=== PATIENT | female | born 1935 | race Caucasian/White ===

== ENCOUNTER 2016-10-11 13:49 | Emergency (ER) | payer OTHER, MEDICAID ==
[~2016-10-11] VITALS: Ht 162.6 cm; Wt 72.6 kg
[~2016-10-11 13:49] MED LIST: ALEN10TA6 PO; ASPI-1063 PO; INSU10VI4 SUBCUT; LIP40 PO; LISI10TA5 PO; METO-442 PO; TOPXL100 PO
[2016-10-11 14:03] VITALS: BP_SYST 155
[2016-10-11 14:36] LABS: BASOPHILS % (AUTO) 0.4 % (0.0-2.0); EOSINOPHILS # (AUTO) 0.1 K/uL (0.0-0.4); HEMATOCRIT 36.6 % (36-48); HEMOGLOBIN 12.1 g/dL (12.0-16.0); MEAN CORPUSCULAR HEMOGLOBIN 29 pg (27-31); MEAN CORPUSCULAR HGB CONC 33 % (32-36); MEAN CORPUSCULAR VOLUME 88 fL (79.0-98.0); MONOCYTES # (AUTO) 1.3 K/uL (0.0-1.0); MONOCYTES % (AUTO) 11.5 % (1.7-9.3); NEUTROPHILS # (AUTO) 7.9 K/uL (1.8-7.7); NEUTROPHILS % (AUTO) 69.1 % (40.0-70.0); PLATELET COUNT (AUTO) 223 K/uL (130-430); RED BLOOD CELL COUNT(AUTO) 4.18 MIL/uL (4.2-6.2); RED CELL DISTRIBUTION WIDTH 13.4 % (9.0-15.0); WHITE BLOOD COUNT (AUTO) 11.3 K/uL (4.8-10.8)
[2016-10-11 14:47] LABS: ANION GAP 9 (5-15); CALCIUM 9.2 mg/dL (8.4-11.0); CHLORIDE 97 mmol/L (98-107); CREATININE 1.26 mg/dL (0.55-1.30); GLUCOSE 151 mg/dL (70-99); PROTHROMBIN TIME 10.4 SECS (9.5-12.5); SODIUM SERUM 130 mmol/L (136-145); UREA NITROGEN, BLOOD 19 mg/dL (8-21)
[2016-10-11 15:02] LABS: ALANINE AMINOTRANSFERASE 24 U/L (12-78); ALBUMIN 3.3 g/dL (3.4-4.8); ASPARTATE AMINOTRANSFERASE 19 U/L (10-37); FREE T4 (FREE THYROXINE) 0.9 ng/dL (0.6-1.6); TOTAL BILIRUBIN 0.6 mg/dL (0.0-1.0); TOTAL PROTEIN, SERUM 7.2 g/dL (6.4-8.3)
[2016-10-11 15:06] LABS: ALCOHOL, BLOOD < 3 mg/dL (<10)
[2016-10-11 15:26] LABS: BILIRUBIN,URINE NEGATIVE (NEGATIVE); BLOOD, URINE NEGATIVE (NEGATIVE); CLARITY/URINE CLEAR (CLEAR); COLOR,URINE YELLOW (YELLOW); GLUCOSE,URINE NEGATIVE (NEGATIVE); KETONES,URINE NEGATIVE (NEGATIVE); LEUKOCYTE ESTERASE ,URINE NEGATIVE (NEGATIVE); NITRITE, URINE NEGATIVE (NEGATIVE); PH,URINE 6.5 (5.0-8.0); PROTEIN URINE 2+ (NEGATIVE); UROBILINOGEN,URINE 0.2 (0.2-1.0)
[2016-10-11 15:45] VITALS: BP_SYST 148
[2016-10-11 16:03] LABS: BACTERIA,URINE FEW /HPF (None Seen); RBC,URINE 0-3 /HPF (0-3)
[2016-10-11 16:19] LABS: BARBITURATE, URINE NEGATIVE (NEG <=200); BENZODIAZEPINE, URINE NEGATIVE (NEG <=150); CANNABINOID, URINE NEGATIVE (NEG <=50); COCAINE, URINE NEGATIVE (NEG <=150); METHAMPHETAMINES SCREEN,URINE NEGATIVE (NEG <=500); OPIATE, URINE NEGATIVE (NEG <=100); PHENCYCLIDINE SCREEN,URINE NEGATIVE (NEG <=25); UR TRICYCLIC ANTIDEPRESSANTS NEGATIVE (NEG <=300); URINE AMPHETAMINE NEGATIVE (NEG <=500); URINE METHADONE NEGATIVE (NEG <=200); URINE OXYCODONE SCREEN NEGATIVE (NEG <=100); URINE PROPOXYPHENE SCREEN NEGATIVE (NEG <=300)
== END 2016-10-11 15:45 | disposition home or self-care (01) ==
LOC: SED 13:49
DX: E11.649 Type 2 diabetes mellitus with hypoglycemia without coma (principal); I10 Essential (primary) hypertension; Z79.82 Long term (current) use of aspirin; Z79.899 Other long term (current) drug therapy
CPT/HCPCS: 36415; 71010; 74000; 80053; 80307; 81000; 82140; 82962; 83605; 83880; 84439; 84484; 85025; 85610; 87040; 93005; 99285; G0482

== ENCOUNTER 2017-09-03 14:46 | Emergency (ER) | payer OTHER, MEDICAID ==
[~2017-09-03] VITALS: Ht 157.5 cm; Wt 77.6 kg
[2017-09-03 14:46] VITALS: BP_SYST 163
[~2017-09-03 14:46] MED LIST changes: -ALEN10TA6 PO; +AZIT500T2 PO; +LISI-219 PO; -LISI10TA5 PO; -METO-442 PO
[2017-09-03] MEDS ORDERED: DEXTROSE 50% JECT 50 ML DISP.SYRIN IVP ONE (15:00)
[2017-09-03] MEDS ORDERED: DEXTROSE 50% JECT 50 ML DISP.SYRIN ONE (15:05)
[2017-09-03 15:48] LABS: ANION GAP 10 (5-15); CALCIUM 9.4 mg/dL (8.4-11.0); CHLORIDE 103 mmol/L (98-107); CREATININE 1.44 mg/dL (0.55-1.30); GLUCOSE 256 mg/dL (70-99); POTASSIUM 3.7 mmol/L (3.5-5.1); SODIUM SERUM 136 mmol/L (136-145); UREA NITROGEN, BLOOD 34 mg/dL (8-21)
[2017-09-03 15:53] LABS: ALANINE AMINOTRANSFERASE 25 U/L (12-78); ALBUMIN 3.3 g/dL (3.4-4.8); ASPARTATE AMINOTRANSFERASE 23 U/L (10-37); TOTAL BILIRUBIN 0.6 mg/dL (0.0-1.0)
[2017-09-03 16:12] LABS: PROTHROMBIN TIME 10.3 SECS (9.5-12.5)
[2017-09-03 16:27] LABS: BASOPHILS % (AUTO) 0.5 % (0.0-2.0); EOSINOPHILS % (AUTO) 0.5 % (0.0-4.0); HEMATOCRIT 35.3 % (36-48); HEMOGLOBIN 11.6 g/dL (12.0-16.0); LYMPHOCYTES # (AUTO) 1.8 K/uL (1.0-5.5); LYMPHOCYTES % (AUTO) 17.9 % (20.5-51.5); MEAN CORPUSCULAR HEMOGLOBIN 28 pg (27-31); MEAN CORPUSCULAR HGB CONC 33 % (32-36); MEAN CORPUSCULAR VOLUME 85 fL (79.0-98.0); MONOCYTES # (AUTO) 0.9 K/uL (0.0-1.0); MONOCYTES % (AUTO) 9.6 % (1.7-9.3); NEUTROPHILS # (AUTO) 7.2 K/uL (1.8-7.7); NEUTROPHILS % (AUTO) 71.5 % (40.0-70.0); PLATELET COUNT (AUTO) 245 K/uL (130-430); RED BLOOD CELL COUNT(AUTO) 4.17 MIL/uL (4.2-6.2); RED CELL DISTRIBUTION WIDTH 15.1 % (9.0-15.0); WHITE BLOOD COUNT (AUTO) 9.9 K/uL (4.8-10.8)
[2017-09-03 17:00] LABS: BILIRUBIN,URINE NEGATIVE (NEGATIVE); BLOOD, URINE NEGATIVE (NEGATIVE); CLARITY/URINE SL HAZY (CLEAR); COLOR,URINE YELLOW (YELLOW); GLUCOSE,URINE 1+ (NEGATIVE); KETONES,URINE NEGATIVE (NEGATIVE); LEUKOCYTE ESTERASE ,URINE NEGATIVE (NEGATIVE); NITRITE, URINE NEGATIVE (NEGATIVE); PH,URINE 5.5 (5.0-8.0); PROTEIN URINE 2+ (NEGATIVE); UROBILINOGEN,URINE 0.2 (0.2-1.0)
[2017-09-03 17:07] LABS: BACTERIA,URINE MODERATE /HPF (None Seen); RBC,URINE 0-3 /HPF (0-3)
[2017-09-03 17:08] LABS: MUCUS,URINE 1+ /LPF (None Seen); URINE AMORPHOUS URATE 2+ /HPF (None Seen)
[2017-09-03 17:27] VITALS: BP_SYST 127
== END 2017-09-03 17:27 | disposition home or self-care (01) ==
LOC: SED 14:46
DX: E11.649 Type 2 diabetes mellitus with hypoglycemia without coma (principal); R41.0 Disorientation, unspecified; I10 Essential (primary) hypertension; Z79.4 Long term (current) use of insulin; Z79.899 Other long term (current) drug therapy
CPT/HCPCS: 36415; 70450-TC; 71045; 80053; 81000-TC; 83605; 84484; 85025; 85610-TC; 85730-TC; 87040-TC; 87086; 93005; 96374; 99284

== ENCOUNTER 2017-11-25 23:35 | Inpatient (IN) | payer OTHER, MEDICAID ==
[~2017-11-25] VITALS: Ht 144.8 cm; Wt 79.8 kg
[~2017-11-25 23:35] MED LIST changes: -ASPI-1063 PO; +ASPI-1153 PO
--- NOTE | 2017-11-25 23:40 | NUR ---
BIB squad [facility] from home and Placed in room 8 . Placed on shelter monitor, blood pressure machine and pulse oximeter. To gown for exam. Side rails up.
[2017-11-25 23:41] VITALS: BP_SYST 185
--- NOTE | 2017-11-25 23:47 | NUR ---
NÉSTOR Ann at bedside examining patient.
[2017-11-26] VITALS (7 sets, daily range): BP systolic 157–176
[2017-11-26] MEDS ORDERED: DEXTROSE 50% JECT 50 ML DISP.SYRIN IVP ONE
--- NOTE | 2017-11-26 00:03 | NUR ---
medication was given, pt tolerated well. No adverse reaction, will continue to monitor.
[2017-11-26 00:42] LABS: CLARITY/URINE CLEAR (CLEAR); COLOR,URINE YELLOW (YELLOW); GLUCOSE,URINE 1+ (NEGATIVE); KETONES,URINE NEGATIVE (NEGATIVE); PROTEIN URINE 2+ (NEGATIVE)
[2017-11-26 00:43] LABS: BILIRUBIN,URINE NEGATIVE (NEGATIVE); BLOOD, URINE NEGATIVE (NEGATIVE); LEUKOCYTE ESTERASE ,URINE 1+ (NEGATIVE); NITRITE, URINE NEGATIVE (NEGATIVE); UROBILINOGEN,URINE 0.2 (0.2-1.0)
[2017-11-26 00:49] LABS: RBC,URINE 0-3 /HPF (0-3)
[2017-11-26 00:50] LABS: BACTERIA,URINE FEW /HPF (None Seen); WBC,URINE 0-3 /HPF (0-3)
--- NOTE | 2017-11-26 01:10 | NUR ---
# 22 gauge angiocath placed to left forearm. Use of asceptic technique. Opsite placed over site. Blood return noted. Flushed with 10 cc of normal saline. No evidence of infiltration noted. Patient tolerated well.
--- NOTE | 2017-11-26 01:10 | NUR ---
IV site to left upper arm infiltrated. Noted swelling and erythema. d/c IV.
[2017-11-26 01:14] LABS: ANION GAP 6 (5-15); CHLORIDE 88 mmol/L (98-107); GLUCOSE 286 mg/dL (70-99); POTASSIUM 3.2 mmol/L (3.5-5.1); SODIUM SERUM 121 mmol/L (136-145); UREA NITROGEN, BLOOD 19 mg/dL (8-21)
[2017-11-26 01:20] LABS: ALANINE AMINOTRANSFERASE 21 U/L (12-78); ALBUMIN 3.1 g/dL (3.4-4.8); ASPARTATE AMINOTRANSFERASE 24 U/L (10-37); TOTAL BILIRUBIN 0.6 mg/dL (0.0-1.0)
[2017-11-26 01:25] LABS: BASOPHILS % (AUTO) 0.1 % (0.0-2.0); EOSINOPHILS # (AUTO) 0.1 K/uL (0.0-0.4); EOSINOPHILS % (AUTO) 0.6 % (0.0-4.0); HEMATOCRIT 35.4 % (36-48); HEMOGLOBIN 11.9 g/dL (12.0-16.0); MEAN CORPUSCULAR HEMOGLOBIN 28 pg (27-31); MEAN CORPUSCULAR HGB CONC 34 % (32-36); MEAN CORPUSCULAR VOLUME 84 fL (79.0-98.0); MONOCYTES # (AUTO) 1.7 K/uL (0.0-1.0); MONOCYTES % (AUTO) 11.6 % (1.7-9.3); NEUTROPHILS # (AUTO) 10.6 K/uL (1.8-7.7); NEUTROPHILS % (AUTO) 73.7 % (40.0-70.0); PLATELET COUNT (AUTO) 251 K/uL (130-430); WHITE BLOOD COUNT (AUTO) 14.4 K/uL (4.8-10.8)
[2017-11-26] MEDS ORDERED: NACL 0.9% 1,000 ML IV ONE ×2 (01:45)
[2017-11-26] MEDS ORDERED: POTASSIUM CHLORIDE 20 MEQ/PKT PACKET PO ONE (01:45)
--- NOTE | 2017-11-26 02:31 | NUR ---
Assisted patient onto and off of bedpan. Pt tolerated well.
--- NOTE | 2017-11-26 03:40 | NUR ---
Medication reconciliation completed with information provided by patient's family. Any prior medication reconciliation on file was reviewed and corrected.
--- NOTE | 2017-11-26 03:44 | NUR ---
One set of blood cultures were drawn. Limited supply of blood cultures. press hand supervisor is made aware.
[2017-11-26] MEDS ORDERED: D5/0.45 NS 1,000 ML IV SCH (04:15)
[2017-11-26] MEDS ORDERED: DIPHENHYDRAMINE INJ 50 MG/ML VIAL IVP ONE (04:15)
[2017-11-26] MEDS ORDERED: NITROFURANTOIN MONOHYD/M-CRYST 100 MG CAPSULE PO ONE ×2 (04:15→04:43)
[2017-11-26] MEDS ORDERED: DIPHENHYDRAMINE INJ 50 MG/ML VIAL ONE (04:21)
--- NOTE | 2017-11-26 04:25 | NUR ---
ADMISSION NOTE Received patient from ER via gurney. Patient admitted with diagnosis of Hypoglycemia. Patient is awake, alert, oriented X 3. Patient oriented to hospital room, call light, toileting, pain management and safety-teach back done. Patient informed that Soniya will be her nurse and that their room number is 133b. Personal belongings checked and Belongings List documented. Call light within reach.
--- NOTE | 2017-11-26 04:25 | NUR ---
Transfer to Telemetry via ACLS protocol. Licensed nurse present. IV present no signs or symptoms of infiltration.
--- NOTE | 2017-11-26 04:25 | NUR ---
Patient will be admitted to care of Dr. Shirley. Admitted to Telemetry unit. Will go to room 135. Belongings list completed. Summary report printed. Report will be given at bedside.
--- NOTE | 2017-11-26 05:30 | NUR ---
Initial RN notes Pt AAOx3, azerbaijani speaking. Dx Hypoglycemia. SR on the monitor. No acute distress noted, pt denies any pain at this time. IV fluids started on L. forearm 22G , good blood return D51/2NS at 75. Some redness noted on L FA pt's daughter states after they started on Levaquin in ER. SHERI small bruising noted. Oriented pt to call light use. Pt verbalized understanding. Bed low, locked, bed alarm on. Call light within reach. To endorse to am nurse.
--- NOTE | 2017-11-26 05:40 | NUR ---
Blood sugar checked 95. Pt AAOx3. No s/s acute distress noted. Call light within reach.
--- NOTE | 2017-11-26 06:45 | NUR ---
Blood sugar checked 90. Pt asleep easily arousable. No s/s distress noted.
--- NOTE | 2017-11-26 08:20 | NUR ---
OPENING NOTE REPORT IS RECEIVED FROM BUNDLE PERSON NURSE AND CARE IS ENDORSED TO MYSELF. PT IS RECEIVED AWAKE, ALERT, AND ORIENTED X4 URDU SPEAKING. NO SIGNS OR SYMPTOMS OF DISTRESS OR SOB NOTED. MORNING VS SHOW HIGH BLOOD PRESSURE. WHITE BOARD IS UPDATED AND PLAN OF CARE IS UPDATED. CURRENT NEEDS ARE MET. BED IS AT LOWEST POSITION, CALL LIGHT WITHIN REACH, THREE SIDE RAILS UP, BED ALARM IS ON. WILL CONTINUE TO MONITOR.
--- NOTE | 2017-11-26 10:09 | NUR ---
ROUNDS PT IS AWAKE AND ALERT. NO SIGNS OR SYMPTOMS OF DISTRESS OR SOB NOTED. PT DENIES ANY PAIN. ACCU CHECKS CONTINUE TO BE EVER HOUR WITH THE LAST TWO BEING 85 THEN 100. PT IS A SELF RODRIGEZ. CURRENT NEEDS ARE MET. BED IS AT LOWEST POSITION, CALL LIGHT WITHIN REACH, THREE SIDE RAILS UP, BED ALARM IS ON. WILL CONTINUE TO MONITOR.
--- NOTE | 2017-11-26 12:54 | NUR ---
ROUNDS PT IS AWAKE AND ALERT. NO SIGNS OR SYMPTOMS OF DISTRESS OR SOB NOTED. PT DENIES ANY PAIN. CURRENT NEEDS ARE MET. BED IS AT LOWEST POSITION, CALL LIGHT WITHIN REACH, THREE SIDE RAILS UP, BED ALARM IS ON. WILL CONTINUE TO MONITOR.
[2017-11-26] MEDS ORDERED: DEXTROSE 50% JECT 50 ML DISP.SYRIN IVP PRN (13:45)
[2017-11-26] MEDS ORDERED: cloNIDine HCL 0.1 MG TABLET PO PRN (13:45)
[2017-11-26] MEDS ORDERED: HYDROCHLOROTHIAZIDE 12.5 MG CAPSULE (HCTZ) PO ONE (14:00)
[2017-11-26] MEDS ORDERED: LISINOPRIL 20 MG TABLET PO ONE (14:15)
[2017-11-26] MEDS ORDERED: METOPROLOL SUCCINATE 50 MG TAB.SR.24H (TOPROL XL) PO ONE (14:15)
--- NOTE | 2017-11-26 14:49 | NUR ---
ROUNDS PT IS AWAKE AND ALERT, WATCHING TV. NO SIGNS OR SYMPTOMS OF DISTRESS OR SOB NOTED. BLOOD PRESSURE MEDICATIONS WERE GIVEN BY MOUTH AND TOLERATED WELL. CURRENT NEEDS ARE MET. BED IS AT LOWEST POSITION, CALL LIGHT WITHIN REACH, THREE SIDE RAILS UP, BED ALARM IS ON. WILL CONTINUE TO MONITOR.
--- NOTE | 2017-11-26 16:02 | NUR ---
ROUNDS PT IS SLEEPING. NO SIGNS OR SYMPTOMS OF DISTRESS OR SOB NOTED. CURRENT NEEDS ARE MET. BED IS AT LOWEST POSITION, CALL LIGHT WITHIN REACH, THREE SIDE RAILS UP, BED ALARM IS ON. WILL CONTINUE TO MONITOR.
[2017-11-26] MEDS: INSULIN REGULAR, HUMAN 100 UNITS/ML, 10 ML VIAL (novoLIN R) SUBCUT PRN ×2 (17:55→20:49)
--- NOTE | 2017-11-26 18:25 | NUR ---
CLOSING NOTE PT IS AWAKE AND ALERT, WATCHING TV. NO SIGNS OR SYMPTOMS OF DISTRESS OR SOB NOTED. PT WAS GIVEN INSULIN COVERAGE PER SLIDING SCALE. CURRENT NEEDS ARE MET. BED IS AT LOWEST POSITION, CALL LIGHT WITHIN REACH, THREE SIDE RAILS UP, BED ALARM IS ON. WILL CONTINUE TO MONITOR UNTIL CARE AND REPORT IS GIVEN TO TITLE I ASSISTANT NURSE.
--- NOTE | 2017-11-26 19:05 | NUR ---
change of shift.pt.presents language barrier;syriac;sole language.pt.presents quiescent affect;calm.pt.viewing tv programming.general status stable.respiratory status stable.call light/telephone placed w/in the pt's reach.
--- NOTE | 2017-11-26 20:00 | NUR ---
p.assessed.v/s assessed values w/in normal limits.no c/o pain,nausea.i have apprised the pt.that snacks are available w/in the shift.no requests@this hour.general status stable.respiratory status stable@room air.iv access lock.pt. repositioned.i have up-dated the white board.call light/telephone placed w/in the pt's reach. Addendum: 11/26/17 at 2218 by Erlin Schneider RN i have emptied/cleaned the [facility].
--- NOTE | 2017-11-26 20:45 | NUR ---
pt.has been bathed.i have assessed the blood glucose;value:234mg/dl.i have apprised the pt.that she is to receive regular insulin:4 units.w/ a snack.i have explained the indication for the snack.
--- NOTE | 2017-11-26 21:00 | NUR ---
i have administered the insulin:regular;4 units.i have proved the snack.i have removed the iv fluids bag:iv fluids d/c.i have inquired if the pt. has received the flu vaccine.the pt.stated yes per her pmd. Addendum: 11/26/17 at 2218 by Erlin Schneider RN i have emptied/cleaned the [facility].
--- NOTE | 2017-11-26 22:15 | NUR ---
pt.assessed.pt.presents quiescent affect;calm,somnolent.pt.repositioned.general status stable.respiratory status stable. pt.had consumed the snack pt to sleep.call light/telephone placed w/in the pt's reach.
--- NOTE | 2017-11-26 23:14 | NUR ---
pt.present elevated b/p;i have been apprised per ronald.i have administered clonidine:0.1mg po pt.has requested assistance to the restroom.i inquired if the pt.did not want to utilize the c pt.stated no her preference is the restroom.i have assisted the pt.to the restroom.and assisted w/ pt's return bed; safely.no additional requests@this hour.
--- NOTE | 2017-11-27 00:05 | NUR ---
pt.assessed.pt.repositioned.pt.presents quiescent affect;calm,somnolent. general status stable.respiratory status stable.call light/telephone placed the pt's reach.
[2017-11-27 00:30] VITALS: BP_SYST 163
--- NOTE | 2017-11-27 00:43 | NUR ---
i have provided the indication/necessity for compression stockings;pt.understood;setswana. i have applied the compression stockings.i have assessed the b/p post administration of catapres:0.1mg po.no requests per the pt./@this hour.
--- NOTE | 2017-11-27 02:05 | NUR ---
pt.assessed.pt.presents quiescent affect;calm,somnolent.general status stable.respiratory status stable. pt.repositioned.no requests@this hour.call light/telephone placed w/i the pt's reach;luxembourgish.
--- NOTE | 2017-11-27 04:00 | NUR ---
pt.requested assistance to the restroom.analyn;php mysql developer assisted the i have assisted the pt's return to bed. pt.repositioned.i inquired if the pt.presents requests pt.stated;no,she is fine.general status stable.respiratory status stable.call light/telephone placed w/in the pt's reach.
--- NOTE | 2017-11-27 06:45 | NUR ---
PT.ASSSESSED.PT.PRESENTS QUIESCETN AFFCT;CALM,I HAVE ASSISTESD THE PT.TO THE RESTROOM.UI HAVE ASSISTED THE PT'S RETURN TO BED;SAFELY.I HAVE ASSED THE BLOOD GLUCOSE.I HAVE TURNED THE TV ON TV PROGRAMMING.FAROESE CHANNEL. I HAVE RE-APLIED THE SCD'S TOCKINGS.NO C/OPAIN,NAUSEA.CALL LIGHT/TELEPHPNE PALCED W/IN THE PT'S REACH.
--- NOTE | 2017-11-27 07:00 | NUR ---
BLOOD GLUCOSE VALUE:211MG/DL.I HAVE ADMINISTERED REGULAR INSULIN;6 UNITS.
[2017-11-27] MEDS: INSULIN REGULAR, HUMAN 100 UNITS/ML, 10 ML VIAL (novoLIN R) SUBCUT PRN ×3 (07:07→17:12)
--- NOTE | 2017-11-27 07:53 | NUR ---
OPENING NOTE: MORNING REPORT WAS TAKEN FROM STAFF TRAINER NURSE. PATIENT IS SITTING AT EDGE OF BED EATING BREAKFAST. PATIENT WAS ALERT AND ORIENTED. PATIENT IS NOT COMPLAINING OF SHORTNESS OF BREATH. PATIENT IS ON ROOM AIR. PATIENT NOT COMPLAINING OF NAUSEA OR VOMITING. PATIENT NOT COMPLAINING OF CONSTIPATION. PATIENT NOT COMPLAINING OF PAIN. PATIENT'S LEGS ARE SLIGHTLY SWOLLEN ESPECIALLY RIGHT ANKLE MORE THAN LEFT. PATIENT'S IV IS SALINE LOCKED. BED ALARM IS ON AND SIDE RAILS ARE UP. BED IN LOWEST POSITION WITH CALL LIGHT IN REACH. WILL CONTINUE TO MONITOR.
[2017-11-27 08:02] VITALS: BP_SYST 157
--- NOTE | 2017-11-27 08:13 | NUR ---
Nutrition Update Matthew Scale 16 noted. Pt admitted for hypoglycemia Diet: regular diet BMI: 38.1 kg/m2 RD to follow per nutrition care standards.
[2017-11-27] MEDS ORDERED: LISINOPRIL 20 MG TABLET PO SCH (09:00)
[2017-11-27] MEDS ORDERED: ASPIRIN 81 MG TABLET(ECOTRIN) PO SCH (09:00)
[2017-11-27] MEDS ORDERED: METOPROLOL SUCCINATE 50 MG TAB.SR.24H (TOPROL XL) PO SCH (09:00)
[2017-11-27] MEDS ORDERED: HYDROCHLOROTHIAZIDE 12.5 MG CAPSULE (HCTZ) PO SCH (09:00)
[2017-11-27] MEDS ORDERED: ATORVASTATIN 20 MG TABLET PO SCH (09:00)
--- NOTE | 2017-11-27 09:21 | NUR ---
NOTE: GAVE PATIENT MORNING MEDICATIONS. PATIENT SWALLOWED WITH OUT DIFFICULTIES. HELD METOPROLOL FOR NOW BECAUSE PATIENTS HEART RATE 50. WILL RE ASSESS IN AN HOUR.
--- NOTE | 2017-11-27 10:20 | NUR ---
/NOTE: TOLD DR. WILKINS I HELD METOPROLOL BECAUSE HEART RATE LOW. ASKED IF HE STILL WANTED ME TO GIVE AND SAID YES. RECHECKED BLOOD PRESSURE AND WAS ELEVATED SO GAVE. WILL CONTINUE TO MONITOR PATIENT.
[2017-11-27 10:53] LABS: EOSINOPHILS # (AUTO) 0.2 K/uL (0.0-0.4); LYMPHOCYTES # (AUTO) 2.3 K/uL (1.0-5.5); WHITE BLOOD COUNT (AUTO) 7.4 K/uL (4.8-10.8)
[2017-11-27 10:55] LABS: BASOPHILS # (AUTO) 0.1 K/uL (0.0-0.2); BASOPHILS % (AUTO) 0.7 % (0.0-2.0); EOSINOPHILS % (AUTO) 2.1 % (0.0-4.0); HEMATOCRIT 35.5 % (36-48); LYMPHOCYTES % (AUTO) 30.5 % (20.5-51.5); MEAN CORPUSCULAR HEMOGLOBIN 28 pg (27-31); MEAN CORPUSCULAR HGB CONC 34 % (32-36); MEAN CORPUSCULAR VOLUME 83 fL (79.0-98.0); MONOCYTES % (AUTO) 13.7 % (1.7-9.3); NEUTROPHILS # (AUTO) 3.8 K/uL (1.8-7.7); PLATELET COUNT (AUTO) 254 K/uL (130-430); RED BLOOD CELL COUNT(AUTO) 4.25 MIL/uL (4.2-6.2); RED CELL DISTRIBUTION WIDTH 14.6 % (9.0-15.0)
[2017-11-27 10:58] LABS: ANION GAP 8 (5-15); CALCIUM 9.3 mg/dL (8.4-11.0); CHLORIDE 90 mmol/L (98-107); CREATININE 1.34 mg/dL (0.55-1.30); GLUCOSE 293 mg/dL (70-99); POTASSIUM 4.7 mmol/L (3.5-5.1); SODIUM SERUM 121 mmol/L (136-145); UREA NITROGEN, BLOOD 19 mg/dL (8-21)
[2017-11-27 11:02] LABS: ALANINE AMINOTRANSFERASE 25 U/L (12-78); ALBUMIN 3.1 g/dL (3.4-4.8); ASPARTATE AMINOTRANSFERASE 25 U/L (10-37); TOTAL BILIRUBIN 0.6 mg/dL (0.0-1.0)
[2017-11-27 11:40] VITALS: BP_SYST 167
--- NOTE | 2017-11-27 11:44 | NUR ---
BLOOD SUGAR: PATIENT WAS ASLEEP IN BED. CHECKED PATIENT'S BLOOD SUGAR AND WAS 316. GAVE INSULIN TO COVER. PATIENT RESTING AND WAITING FOR LUNCH. WILL CONTINUE TO MONITOR.
--- NOTE | 2017-11-27 13:49 | NUR ---
NOTE: CHECKED IN ON PATIENT. PATIENT DOING GOOD. PATIENT TOOK OFF SCD'S BECAUSE THEY WERE HURTING HER. PATIENT RELAXING WATCHING TV. WILL CONTINUE TO MONITOR.
--- NOTE | 2017-11-27 15:50 | NUR ---
MD: PAGED DR WILKINS TO SEE IF PATIENT WAS GOING TO BE DISCHARGED HOME OR NOT. ASKED WHAT BUN AND CR WAS. READ TO HIM. SAID TO DC HOME AND FOLLOW UP WITH ASSEMBLER [employer]AY [employer].
[2017-11-27 16:00] VITALS: BP_SYST 155; BP_SYST 172
--- NOTE | 2017-11-27 16:05 | NUR ---
NOTE: PATIENT SITTING AT EDGE OF BED. TRIED TO HELP PATIENT GO TO RESTROOM BUT DIDNT UNDERSTAND WHAT SHE WANTED. RODRIGUEZ CAME AND HELPED PATIENT. WILL CONTINUE TO MONITOR.
--- NOTE | 2017-11-27 16:19 | NUR ---
DC Plan: DC order faxed to [employer] ([phone]).
[2017-11-27] MEDS ORDERED: INSU100V3 SQ ×2 (16:48)
--- NOTE | 2017-11-27 16:51 | NUR ---
CALLED DAUGHTER COREY LET HER KNOW DR CLEARED HER FOR DISCHARGE. DAUGHTER SAID SHE WILL BE HERE AFTER SHE IS DONE WITH HER ERRAND.
[2017-11-27 17:42] VITALS: BP_SYST 155
--- NOTE | 2017-11-27 18:41 | NUR ---
CLOSING NOTE: PATIENT LAYING COMFORTABLY IN BED. PATIENT NOT COMPLAINING OF PAIN OR SHORTNESS OF BREATH. PATIENT ON ROOM AIR. IV SALINE LOCKED. PATIENT AWARE SHE WILL LEAVE ONCE DAUGHTER GETS HERE. PATIENT HAS NO FURTHER REQUESTS. WILL CONTINUE TO MONITOR AND GIVE REPORT TO LIFE TRAINER NURSE.
--- NOTE | 2017-11-27 19:35 | NUR ---
D/C Patient Patient given medication reconciliation form and D/C instructions. Exit Care provided. Patient verbalized understanding. Educated daughter Alycia and grand daughter how to draw up insulin so they can help patient. Family did return demonstration. MD discussed with patient the results and treatment provided. Ambulatory with steady gait for discharge to home. Patient in stable condition, ID band removed. IV catheter removed, intact and dressing applied, no active bleeding. Patient educated on pain management. All belongings sent with patient. Wheeled patient out to front at 1930.
--- NOTE | 2017-11-30 13:49 | NUR ---
Discharge Follow Up Phone Call: MARBLE HELPER phoned pt ([phone]); pt states that she is doing well. Pt had no questions/concerns regarding her hospitalization or discharge instructions. Pt states that she has made a follow up appointment with Dr. Haney. Pt denied the need for further follow up calls.
== END 2017-11-27 19:30 | disposition home or self-care (01) | DRG 683 ==
LOC: SED 23:35 → STU 11-26 04:05
PROVIDERS: ADMIT Internal Medicine; ATTEND Internal Medicine Hospice and Palliative Medicine
DX: N17.9 Acute kidney failure, unspecified (principal); N39.0 Urinary tract infection, site not specified; E87.1 Hypo-osmolality and hyponatremia; E11.649 Type 2 diabetes mellitus with hypoglycemia without coma; E87.6 Hypokalemia; D64.9 Anemia, unspecified; Z66 Do not resuscitate; E78.5 Hyperlipidemia, unspecified; I10 Essential (primary) hypertension; T38.3X5A Adverse effect of insulin and oral hypoglycemic [antidiabetic] drugs, initial encounter; Y92.89 Other specified places as the place of occurrence of the external cause; Z88.1 Allergy status to other antibiotic agents; Z79.82 Long term (current) use of aspirin; Z79.899 Other long term (current) drug therapy
CPT/HCPCS: 36415; 80053; 81000-TC; 82962; 83036; 83605; 85025; 87040-TC; 93005; 96361; 96365; 96375; 99285; J1200; J1815; J1956

== ENCOUNTER 2017-12-26 18:05 | Inpatient (IN) | payer OTHER, MEDICAID ==
[~2017-12-26] VITALS: Ht 152.4 cm; Wt 79.4 kg
[2017-12-26 18:05] VITALS: BP_SYST 198
[~2017-12-26 18:05] MED LIST changes: -AZIT500T2 PO; +INSU100V3 SQ; -INSU10VI4 SUBCUT
[2017-12-26] MEDS ORDERED: DEXTROSE 50% JECT 50 ML DISP.SYRIN IVP ONE (18:30)
[2017-12-26 19:10] LABS: BASOPHILS # (AUTO) 0.1 K/uL (0.0-0.2); BASOPHILS % (AUTO) 0.8 % (0.0-2.0); EOSINOPHILS # (AUTO) 0.1 K/uL (0.0-0.4); EOSINOPHILS % (AUTO) 0.9 % (0.0-4.0); HEMATOCRIT 36.8 % (36-48); LYMPHOCYTES # (AUTO) 2.2 K/uL (1.0-5.5); LYMPHOCYTES % (AUTO) 17.4 % (20.5-51.5); MEAN CORPUSCULAR HEMOGLOBIN 28 pg (27-31); MEAN CORPUSCULAR HGB CONC 33 % (32-36); MEAN CORPUSCULAR VOLUME 86 fL (79.0-98.0); MONOCYTES # (AUTO) 1.5 K/uL (0.0-1.0); MONOCYTES % (AUTO) 11.5 % (1.7-9.3); NEUTROPHILS # (AUTO) 8.9 K/uL (1.8-7.7); NEUTROPHILS % (AUTO) 69.4 % (40.0-70.0); PLATELET COUNT (AUTO) 233 K/uL (130-430); RED BLOOD CELL COUNT(AUTO) 4.27 MIL/uL (4.2-6.2); RED CELL DISTRIBUTION WIDTH 14.5 % (9.0-15.0); WHITE BLOOD COUNT (AUTO) 12.8 K/uL (4.8-10.8)
[2017-12-26] MEDS ORDERED: LABETALOL 100 MG/ 20ML VIAL IVP ONE ×2 (19:15→20:30)
[2017-12-26 19:19] LABS: BILIRUBIN,URINE NEGATIVE (NEGATIVE); BLOOD, URINE 1+ (NEGATIVE); CLARITY/URINE CLEAR (CLEAR); COLOR,URINE YELLOW (YELLOW); GLUCOSE,URINE 1+ (NEGATIVE); KETONES,URINE NEGATIVE (NEGATIVE); LEUKOCYTE ESTERASE ,URINE NEGATIVE (NEGATIVE); NITRITE, URINE NEGATIVE (NEGATIVE); PROTEIN URINE 2+ (NEGATIVE); UROBILINOGEN,URINE 0.2 (0.2-1.0)
[2017-12-26 19:26] LABS: ANION GAP 10 (5-15); CHLORIDE 97 mmol/L (98-107); POTASSIUM 4.2 mmol/L (3.5-5.1); SODIUM SERUM 130 mmol/L (136-145)
[2017-12-26 19:27] LABS: CALCIUM 9.4 mg/dL (8.4-11.0); CREATININE 1.27 mg/dL (0.55-1.30); GLUCOSE 245 mg/dL (70-99); UREA NITROGEN, BLOOD 16 mg/dL (8-21)
[2017-12-26 19:32] LABS: ALANINE AMINOTRANSFERASE 21 U/L (12-78); ASPARTATE AMINOTRANSFERASE 31 U/L (10-37); TOTAL BILIRUBIN 0.5 mg/dL (0.0-1.0)
[2017-12-26 19:33] LABS: ALCOHOL, BLOOD < 3 mg/dL (<10)
[2017-12-26 19:47] LABS: PROTHROMBIN TIME 10.1 SECS (9.5-12.5)
[2017-12-26 20:18] LABS: WBC,URINE 0-3 /HPF (0-3)
[2017-12-26 20:19] LABS: BACTERIA,URINE FEW /HPF (None Seen); MUCUS,URINE None Seen /LPF (None Seen); YEAST,URINE None Seen /HPF (None Seen)
[2017-12-26 21:18] VITALS: BP_SYST 161
[2017-12-26] MEDS ORDERED: NACL 0.9% 1,000 ML IV SCH (22:11)
[2017-12-26] MEDS ORDERED: ONDANSETRON HCL 4 MG/2 ML VIAL IVP PRN (22:15)
[2017-12-26] MEDS ORDERED: HYDROcodone/ACETAMIN 5-325 MG TAB (NORCO/ VICODIN) PO PRN (22:15)
[2017-12-26] MEDS ORDERED: ALBUTEROL SULFATE 0.083% 2.5 MG/3 ML VIAL.NEB INH PRN (22:15)
[2017-12-26] MEDS ORDERED: ACETAMINOPHEN 325 MG TABLET PO PRN (22:15)
[2017-12-26] MEDS ORDERED: LISINOPRIL 20 MG TABLET PO ONE (22:30)
[2017-12-26 22:51] VITALS: BP_SYST 137
[2017-12-26] MEDS ORDERED: cefTRIAXone 1 GM IVPB PREMIX 50 ML IV SCH (23:00)
[2017-12-27] MEDS ORDERED: cefTRIAXone 1 GM IVPB PREMIX 50 ML IV ONE (00:07)
[2017-12-27] MEDS ORDERED: NACL 0.9% 1,000 ML IV ONE (01:00)
[2017-12-27 01:04] VITALS: BP_SYST 164
[2017-12-27] MEDS: INSULIN ASPART 100 UNITS/ML, 10 ML VIAL (NovoLOG) SUBCUT PRN ×2 (06:06→11:37)
[2017-12-27 06:44] LABS: ANION GAP 9 (5-15); CALCIUM 8.8 mg/dL (8.4-11.0); CHLORIDE 96 mmol/L (98-107); CREATININE 1.18 mg/dL (0.55-1.30); GLUCOSE 259 mg/dL (70-99); SODIUM SERUM 131 mmol/L (136-145); UREA NITROGEN, BLOOD 13 mg/dL (8-21)
[2017-12-27 06:48] LABS: BASOPHILS % (AUTO) 0.3 % (0.0-2.0); EOSINOPHILS # (AUTO) 0.1 K/uL (0.0-0.4); EOSINOPHILS % (AUTO) 0.9 % (0.0-4.0); HEMOGLOBIN 11.1 g/dL (12.0-16.0); LYMPHOCYTES # (AUTO) 1.6 K/uL (1.0-5.5); LYMPHOCYTES % (AUTO) 19.9 % (20.5-51.5); MEAN CORPUSCULAR HEMOGLOBIN 28 pg (27-31); MEAN CORPUSCULAR HGB CONC 33 % (32-36); MEAN CORPUSCULAR VOLUME 85 fL (79.0-98.0); MONOCYTES # (AUTO) 1.2 K/uL (0.0-1.0); MONOCYTES % (AUTO) 14.4 % (1.7-9.3); NEUTROPHILS # (AUTO) 5.3 K/uL (1.8-7.7); NEUTROPHILS % (AUTO) 64.5 % (40.0-70.0); PLATELET COUNT (AUTO) 250 K/uL (130-430); RED CELL DISTRIBUTION WIDTH 14.1 % (9.0-15.0); WHITE BLOOD COUNT (AUTO) 8.2 K/uL (4.8-10.8)
[2017-12-27 06:55] LABS: ALANINE AMINOTRANSFERASE 17 U/L (12-78); ALBUMIN 2.9 g/dL (3.4-4.8); ASPARTATE AMINOTRANSFERASE 24 U/L (10-37); TOTAL BILIRUBIN 0.7 mg/dL (0.0-1.0)
[2017-12-27 08:02] VITALS: BP_SYST 167
[2017-12-27 08:10] LABS: CHOLESTEROL 94 mg/dL (<200); HDL CHOLESTEROL 47 mg/dL (>55); LDL CHOLESTEROL 38 mg/dL (<100); TRIGLYCERIDES 95 mg/dL (30-150)
[2017-12-27] MEDS ORDERED: METOPROLOL SUCCINATE 50 MG TAB.SR.24H (TOPROL XL) PO SCH (09:00)
[2017-12-27] MEDS ORDERED: ASPIRIN 81 MG TABLET(ECOTRIN) PO SCH (09:00)
[2017-12-27] MEDS ORDERED: cloNIDine HCL 0.1 MG TABLET PO PRN (11:30)
[2017-12-27 11:32] VITALS: BP_SYST 158
[2017-12-27 15:39] VITALS: BP_SYST 154
[2017-12-27 15:48] VITALS: BP_SYST 154
[2017-12-27] MEDS ORDERED: ATORVASTATIN 20 MG TABLET PO SCH (21:00)
== END 2017-12-27 16:13 | disposition home or self-care (01) | DRG 638 ==
LOC: SED 18:05 → STU 20:56
PROVIDERS: ADMIT Internal Medicine; ATTEND Internal Medicine
DX: E11.649 Type 2 diabetes mellitus with hypoglycemia without coma (principal); E87.1 Hypo-osmolality and hyponatremia; I10 Essential (primary) hypertension; S00.03XA Contusion of scalp, initial encounter; E78.5 Hyperlipidemia, unspecified; W18.39XA Other fall on same level, initial encounter; Z88.0 Allergy status to penicillin; Z79.82 Long term (current) use of aspirin; Z79.899 Other long term (current) drug therapy; Z88.8 Allergy status to other drugs, medicaments and biological substances; Z83.3 Family history of diabetes mellitus; Y93.89 Activity, other specified; Y92.89 Other specified places as the place of occurrence of the external cause; Y99.8 Other external cause status
CPT/HCPCS: 36415; 70450-TC; 71045; 72170-TC; 80053; 80061; 81000-TC; 82962; 83036; 84484; 85025; 85610-TC; 85730-TC; 87081; 93005; 93306; 93880; 96374; 96375; 96376; 99291; G0482; J0696; J3490; J7030

== ENCOUNTER 2017-12-31 18:08 | Emergency (ER) | payer OTHER, MEDICAID ==
[~2017-12-31] VITALS: Ht 152.4 cm; Wt 78.5 kg
[2017-12-31 18:10] VITALS: BP_SYST 198
[2017-12-31] MEDS ORDERED: NACL 0.9% 1,000 ML IV ONE (18:19)
[2017-12-31] MEDS ORDERED: NS 1000 ML IV.SOLN IV ONE (18:30)
[2017-12-31] MEDS ORDERED: INSULIN REGULAR, HUMAN 10 UNITS/0.1 ML INJ IVP ONE (18:30)
[2017-12-31 18:54] LABS: MEAN CORPUSCULAR HGB CONC 32 % (32-36)
[2017-12-31 18:56] LABS: HEMATOCRIT 35.5 % (36-48); HEMOGLOBIN 11.4 g/dL (12.0-16.0); MEAN CORPUSCULAR HEMOGLOBIN 28 pg (27-31); MEAN CORPUSCULAR VOLUME 87 fL (79.0-98.0); PLATELET COUNT (AUTO) 296 K/uL (130-430); RED BLOOD CELL COUNT(AUTO) 4.09 MIL/uL (4.2-6.2); RED CELL DISTRIBUTION WIDTH 14.3 % (9.0-15.0); WHITE BLOOD COUNT (AUTO) 8.3 K/uL (4.8-10.8)
[2017-12-31 18:58] LABS: ANION GAP 9 (5-15); CALCIUM 9.4 mg/dL (8.4-11.0); CHLORIDE 96 mmol/L (98-107); CREATININE 1.59 mg/dL (0.55-1.30); POTASSIUM 4.3 mmol/L (3.5-5.1); SODIUM SERUM 126 mmol/L (136-145); UREA NITROGEN, BLOOD 19 mg/dL (8-21)
[2017-12-31 19:01] LABS: BAND % (MANUAL) 1 % (0-6); BASOPHILS % (MANUAL) 0 % (0-2); EOSINOPHILS % (MANUAL) 2 % (0-7); GLUCOSE 415 mg/dL (70-99); INR 0.9 (0.8-1.2); LYMPHOCYTES % (MANUAL) 33 % (20-46); MONOCYTES % (MANUAL) 18 % (0-11); PROTHROMBIN TIME 9.4 SECS (9.5-12.5)
[2017-12-31 19:02] LABS: ALANINE AMINOTRANSFERASE 29 U/L (12-78); AMYLASE 76 U/L (0-100); ASPARTATE AMINOTRANSFERASE 30 U/L (10-37); LIPASE 176 U/L (73-393); TOTAL BILIRUBIN 0.6 mg/dL (0.0-1.0)
[2017-12-31] MEDS ORDERED: METOPROLOL TARTRATE 5 MG/5 ML VIAL IVP ONE (19:15)
[2017-12-31 19:17] LABS: BILIRUBIN,URINE NEGATIVE (NEGATIVE); BLOOD, URINE NEGATIVE (NEGATIVE); CLARITY/URINE CLEAR (CLEAR); COLOR,URINE YELLOW (YELLOW); GLUCOSE,URINE 3+ (NEGATIVE); KETONES,URINE NEGATIVE (NEGATIVE); NITRITE, URINE NEGATIVE (NEGATIVE); PH,URINE 6.5 (5.0-8.0); PROTEIN URINE 2+ (NEGATIVE); UROBILINOGEN,URINE 0.2 (0.2-1.0)
[2017-12-31 19:24] LABS: LEUKOCYTE ESTERASE ,URINE 1+ (NEGATIVE)
[2017-12-31 19:25] LABS: BACTERIA,URINE FEW /HPF (None Seen); MUCUS,URINE None Seen /LPF (None Seen); RBC,URINE 0-3 /HPF (0-3)
[2017-12-31] MEDS ORDERED: hydrALAZINE HCL 20 MG/ML VIAL IVP ONE (21:15)
[2017-12-31 21:46] LABS: ANION GAP 9 (5-15); CHLORIDE 100 mmol/L (98-107); CREATININE 1.31 mg/dL (0.55-1.30); GLUCOSE 174 mg/dL (70-99); POTASSIUM 4.3 mmol/L (3.5-5.1); SODIUM SERUM 133 mmol/L (136-145); UREA NITROGEN, BLOOD 16 mg/dL (8-21)
[2017-12-31 21:50] LABS: ALANINE AMINOTRANSFERASE 30 U/L (12-78); ALBUMIN 2.9 g/dL (3.4-4.8); ASPARTATE AMINOTRANSFERASE 35 U/L (10-37); TOTAL BILIRUBIN 0.6 mg/dL (0.0-1.0)
[2017-12-31 22:12] VITALS: BP_SYST 161
== END 2017-12-31 22:12 | disposition home or self-care (01) ==
LOC: SED 18:08
DX: E11.65 Type 2 diabetes mellitus with hyperglycemia (principal); E87.1 Hypo-osmolality and hyponatremia; I10 Essential (primary) hypertension; E66.01 Morbid (severe) obesity due to excess calories; Z68.33 Body mass index [BMI] 33.0-33.9, adult; Z88.1 Allergy status to other antibiotic agents; Z88.8 Allergy status to other drugs, medicaments and biological substances; Z79.82 Long term (current) use of aspirin; Z79.899 Other long term (current) drug therapy
CPT/HCPCS: 36415; 71045; 80053; 81000; 82150; 82550; 82962; 83605; 83690; 84484; 85007; 85027; 85610; 85730; 87040; 87086; 93005; 96361; 96374; 96375; 99285; J0360; J3490; J7030; J1815

== ENCOUNTER 2020-12-17 17:36 | Emergency (ER) | payer OTHER, MEDICAID ==
[~2020-12-17] VITALS: Ht 160 cm; Wt 72.6 kg
[~2020-12-17 17:36] MED LIST changes: -ASPI-1153 PO; +ASPI-1393 PO
[2020-12-17 17:45] VITALS: BP_SYST 197
--- NOTE | 2020-12-17 17:45 | NUR ---
Pt to bed 6 for evaluation.
--- NOTE | 2020-12-17 18:00 | NUR ---
DR OGDEN IN TO ASSESS
--- NOTE | 2020-12-17 18:57 | NUR ---
FAMILY AT BEDSIDE, CALM, ALERT, NO DISTRESS
--- NOTE | 2020-12-17 19:03 | NUR ---
ASSUMED CARE OF PT FROM LOW GUZMAN
[2020-12-17 19:36] LABS: ANION GAP 9 (5-15); CALCIUM 9.2 mg/dL (8.4-11.0); CHLORIDE 103 mmol/L (98-107); CREATININE 1.61 mg/dL (0.55-1.30); GLUCOSE 183 mg/dL (70-99); POTASSIUM 4.4 mmol/L (3.5-5.1); SODIUM SERUM 135 mmol/L (136-145); UREA NITROGEN, BLOOD 24 mg/dL (8-21)
[2020-12-17 19:47] LABS: INR 0.9 (0.8-1.2); PROTHROMBIN TIME 9.9 SECS (9.5-12.5)
[2020-12-17 19:49] LABS: BASOPHILS % (AUTO) 0.5 % (0.0-2.0); EOSINOPHILS # (AUTO) 0.1 K/uL (0.0-0.4); EOSINOPHILS % (AUTO) 1.5 % (0.0-4.0); HEMATOCRIT 30.4 % (36-48); HEMOGLOBIN 10.1 g/dL (12.0-16.0); LYMPHOCYTES # (AUTO) 2.8 K/uL (1.0-5.5); LYMPHOCYTES % (AUTO) 32.2 % (20.5-51.5); MEAN CORPUSCULAR HEMOGLOBIN 27 pg (27-31); MEAN CORPUSCULAR HGB CONC 33 % (32-36); MEAN CORPUSCULAR VOLUME 82 fL (79.0-98.0); MONOCYTES # (AUTO) 1.2 K/uL (0.0-1.0); MONOCYTES % (AUTO) 13.5 % (1.7-9.3); NEUTROPHILS # (AUTO) 4.5 K/uL (1.8-7.7); NEUTROPHILS % (AUTO) 52.3 % (40.0-70.0); PLATELET COUNT (AUTO) 229 K/uL (130-430); RED CELL DISTRIBUTION WIDTH 16.1 % (9.0-15.0); WHITE BLOOD COUNT (AUTO) 8.6 K/uL (4.8-10.8)
[2020-12-17 19:55] LABS: ALANINE AMINOTRANSFERASE 15 U/L (12-78); ALBUMIN 3.3 g/dL (3.4-4.8); ASPARTATE AMINOTRANSFERASE 18 U/L (10-37); TOTAL BILIRUBIN 0.3 mg/dL (0.0-1.0)
[2020-12-17 20:25] VITALS: BP_SYST 187
--- NOTE | 2020-12-17 20:25 | NUR ---
Patient given written and verbal discharge instructions and verbalizes understanding. ER MD discussed with patient the results and treatment provided. Patient in stable condition. ID arm band removed. Patient educated on pain management and to follow up with PMD. Pain Scale 0/10. Opportunity for questions provided and answered. Medication side effect fact sheet provided.
== END 2020-12-17 20:25 | disposition home or self-care (01) ==
LOC: SED 17:36
DX: N28.9 Disorder of kidney and ureter, unspecified (principal); I10 Essential (primary) hypertension; E11.9 Type 2 diabetes mellitus without complications; Z88.1 Allergy status to other antibiotic agents; Z88.8 Allergy status to other drugs, medicaments and biological substances; Z79.899 Other long term (current) drug therapy
CPT/HCPCS: 36415; 80053; 83605; 85025; 85610-TC; 85730-TC; 99283

== ENCOUNTER 2021-02-08 17:50 | Emergency (ER) | payer OTHER, MEDICAID ==
[~2021-02-08] VITALS: Ht 157.5 cm; Wt 68.0 kg
--- NOTE | 2021-02-08 17:55 | NUR ---
Placed in room 2 . Placed on residential monitor, blood pressure machine and pulse oximeter. To gown for exam. Side rails up. Report given to THOMAS Darby.
[2021-02-08 17:56] VITALS: BP_SYST 245
--- NOTE | 2021-02-08 18:07 | NUR ---
PT BIBA FROM HOME, PORTUGUESE SPEAKING, STATES HER MAGDALENA WAS PLAYING IN KITCHEN AND SHE TRIPPED ON HER LEG CAUSING TRIP AND FALL. 1 INCH LAC TO RT SIDED OF FORHEAD, ACTIVE LEEDING. ICE PACK ON HEAD. PT DENIES ANY LOC. RESP EVEN AND UNLABORED, ON RA @99%. DENIES ANYPAIN AT THIS TIME. COVID VACCINATED AND STATES ALL HER VACCINES ARE UP TO DATE. DTR ON HER WAY. PY HYPERTENSIVE AT 213/101, DR DERAS INFORMED. WAITING FOR ER MD [place].
--- NOTE | 2021-02-08 18:29 | NUR ---
DR DERAS IN ROOM FOR EXAM
[2021-02-08] MEDS ORDERED: LIDOCAINE/EPI 1% 1:100000 20 ML VIAL INJ ONE (18:30)
[2021-02-08] MEDS ORDERED: BACITRACIN ZINC 15 GM TOPICAL OINTMENT TP ONE (18:30)
--- NOTE | 2021-02-08 18:30 | NUR ---
LAC TRAY AT BEDSIDE.
[2021-02-08] MEDS ORDERED: LIDOCAINE 1%, 20 ML MDV 0 ML ONE (18:31)
--- NOTE | 2021-02-08 18:56 | NUR ---
PT TO CT SCAN.
[2021-02-08] MEDS ORDERED: NAPR-1172 PO (19:38)
[2021-02-08] MEDS ORDERED: cloNIDine HCL 0.1 MG TABLET PO ONE (19:45)
[2021-02-08 20:30] VITALS: BP_SYST 180
--- NOTE | 2021-02-08 20:30 | NUR ---
Patient given written and verbal discharge instructions and verbalizes understanding. ER MD discussed with patient the results and treatment provided. Patient in stable condition. ID arm band removed. Rx of Naproxen given. Patient educated on pain management and to follow up with PMD. Pain Scale 0/10 Opportunity for questions provided and answered. Medication side effect fact sheet provided.
== END 2021-02-08 20:30 | disposition home or self-care (01) ==
LOC: SED 17:50
DX: S01.81XA Laceration without foreign body of other part of head, initial encounter (principal); I10 Essential (primary) hypertension; E11.9 Type 2 diabetes mellitus without complications; Z88.1 Allergy status to other antibiotic agents; Z88.8 Allergy status to other drugs, medicaments and biological substances; Z79.899 Other long term (current) drug therapy; Z79.4 Long term (current) use of insulin; W18.39XA Other fall on same level, initial encounter; Y93.89 Activity, other specified; Y92.89 Other specified places as the place of occurrence of the external cause; Y99.8 Other external cause status
CPT/HCPCS: 70450-TC; 76376; 99284; J2001

== ENCOUNTER 2021-06-12 22:37 | Inpatient (IN) | payer OTHER, MEDICAID ==
[~2021-06-12] VITALS: Ht 157.5 cm; Wt 67.6 kg
[2021-06-12 22:37] VITALS: BP_SYST 135
[~2021-06-12 22:37] MED LIST changes: +NAPR-1172 PO
[2021-06-12] MEDS ORDERED: DEXTROSE 50% JECT 50 ML DISP.SYRIN ONE (23:08)
[2021-06-12] MEDS ORDERED: DEXTROSE 50% JECT 50 ML DISP.SYRIN IVP ONE (23:15)
--- NOTE | 2021-06-12 23:56 | NUR ---
2300 PLACED ON BED 2 CONNECTED TO BEDSIDE MONITOR,VSS, AFEBRILE HYPOTERMIC TEMP-96.2, ROOM AIR NOT IN DISTRESS SATS-98 RR-18, OBTUNDED, AROUSABLE TO DEEP PAINFUL STIMULI WITH PURPOSEFUL MOVEMENT,IV PLACED AT LT WRIST G 20 S/L. ACCUCHECK DONE BSL-[address] Tiffany MAURO ADVISE D50 25GM IV STAT AND GIVEN.W/ LACERATION ON RT FRONTO TEMPORAL AREA. DRESSING APPLIED. [address] BRAIN AND SPINE DONE. 2315 AWAKE AND VERY RESPONSIVE NEURO INTACT WITH EPISODE OF FORGETFULLNESS OF WHAT HAPPEN SHE CAN'T REMEMBER.
[2021-06-13] VITALS (7 sets, daily range): BP systolic 106–157
--- NOTE | 2021-06-13 00:09 | NUR ---
2350 EKG DONE, DAUGHTER CAME AND SEE PATIENT. LIST OF MEDS GIVEN.
--- NOTE | 2021-06-13 00:10 | NUR ---
3809 STAT RAD CALLED WITH CRITICAL CT RESULTS WITH SUBARACNOID HEMORRHAGE ON RT SYLVIAN FISSURE. INFORMED DR. ANN
[2021-06-13 00:17] LABS: HEMOGLOBIN 10.4 g/dL (12.0-16.0)
[2021-06-13 00:21] LABS: ANION GAP 11 (5-15); CALCIUM 9.9 mg/dL (8.4-11.0); CHLORIDE 98 mmol/L (98-107); CREATININE 2.26 mg/dL (0.55-1.30); GLUCOSE 103 mg/dL (70-99); POTASSIUM 4.6 mmol/L (3.5-5.1); SODIUM SERUM 130 mmol/L (136-145); UREA NITROGEN, BLOOD 42 mg/dL (8-21)
[2021-06-13 00:22] LABS: BASOPHILS # (AUTO) 0.1 K/uL (0.0-0.2); BASOPHILS % (AUTO) 0.4 % (0.0-2.0); EOSINOPHILS % (AUTO) 0.1 % (0.0-4.0); HEMATOCRIT 31.6 % (36-48); LYMPHOCYTES % (AUTO) 14.7 % (20.5-51.5); MEAN CORPUSCULAR HEMOGLOBIN 28 pg (27-31); MEAN CORPUSCULAR HGB CONC 33 % (32-36); MEAN CORPUSCULAR VOLUME 85 fL (79.0-98.0); MONOCYTES # (AUTO) 2.2 K/uL (0.0-1.0); MONOCYTES % (AUTO) 16.3 % (1.7-9.3); NEUTROPHILS # (AUTO) 9.1 K/uL (1.8-7.7); NEUTROPHILS % (AUTO) 68.5 % (40.0-70.0); PLATELET COUNT (AUTO) 263 K/uL (130-430); RED BLOOD CELL COUNT(AUTO) 3.72 MIL/uL (4.2-6.2); RED CELL DISTRIBUTION WIDTH 20.3 % (9.0-15.0); WHITE BLOOD COUNT (AUTO) 13.4 K/uL (4.8-10.8)
[2021-06-13 00:29] LABS: ALANINE AMINOTRANSFERASE 56 U/L (12-78); ALBUMIN 3.3 g/dL (3.4-4.8); ASPARTATE AMINOTRANSFERASE 152 U/L (10-37); TOTAL BILIRUBIN 0.5 mg/dL (0.0-1.0)
[2021-06-13] MEDS ORDERED: LIDOCAINE 1% 10 MG/ML, 20 ML MDV INJ ONE (01:15)
[2021-06-13] MEDS: D10W 1,000 ML IV SCH ×2 (01:24→09:15)
[2021-06-13 01:37] LABS: BARBITURATE, URINE NEGATIVE (NEG <=200); BENZODIAZEPINE, URINE NEGATIVE (NEG <=150); CANNABINOID, URINE NEGATIVE (NEG <=50); COCAINE, URINE NEGATIVE (NEG <=150); METHAMPHETAMINES SCREEN,URINE NEGATIVE (NEG <=500); OPIATE, URINE NEGATIVE (NEG <=100); PHENCYCLIDINE SCREEN,URINE NEGATIVE (NEG <=25); UR TRICYCLIC ANTIDEPRESSANTS NEGATIVE (NEG <=300); URINE AMPHETAMINE NEGATIVE (NEG <=500); URINE METHADONE NEGATIVE (NEG <=200); URINE OXYCODONE SCREEN NEGATIVE (NEG <=100); URINE PROPOXYPHENE SCREEN NEGATIVE (NEG <=300)
--- NOTE | 2021-06-13 01:38 | NUR ---
FAMILY UPDATED FOR TRANSFER TO HIGHER LEVEL OF CARE BEC OF NEURO INTERVENTION AWAITING FOR ACCEPTING HOSPITAL.
[2021-06-13 01:40] LABS: BILIRUBIN,URINE NEGATIVE (NEGATIVE); BLOOD, URINE 1+ (NEGATIVE); CLARITY/URINE CLEAR (CLEAR); COLOR,URINE ORANGE (YELLOW); GLUCOSE,URINE NEGATIVE (NEGATIVE); KETONES,URINE TRACE (NEGATIVE); LEUKOCYTE ESTERASE ,URINE NEGATIVE (NEGATIVE); NITRITE, URINE NEGATIVE (NEGATIVE); PH,URINE 5.5 (5.0-8.0); PROTEIN URINE 2+ (NEGATIVE); UROBILINOGEN,URINE 0.2 (0.2-1.0)
--- NOTE | 2021-06-13 01:50 | NUR ---
DR Tiffany MARTINEZ SUTURING THE FRONTAL HEAD LACERATION ON GOING
[2021-06-13 01:56] LABS: BACTERIA,URINE FEW /HPF (None Seen); WBC,URINE 0-3 /HPF (0-3)
--- NOTE | 2021-06-13 02:10 | NUR ---
HEAD SUTURED BY DR Allen DRESSING DONE AND KEPT HER WARM, VSS.
[2021-06-13] MEDS ORDERED: ACETAMINOPHEN 325 MG TABLET PO PRN (03:45)
[2021-06-13] MEDS ORDERED: MORPHINE 2 MG/ML INJ. SYRINGE IVP PRN (03:45)
[2021-06-13] MEDS ORDERED: ONDANSETRON HCL 4 MG/2 ML VIAL IVP PRN (03:45)
[2021-06-13] MEDS ORDERED: ALBUTEROL SULFATE 0.083% 2.5 MG/3 ML VIAL.NEB INH PRN (03:45)
[2021-06-13] MEDS: cefTRIAXone 1 GM IVPB PREMIX 50 ML IV SCH (04:25)
--- NOTE | 2021-06-13 05:41 | NUR ---
0340 admit orders in by Dr Antonio see CPOE to carry out orders.IV Rocephin 1 gm given. 0500 TRansfer to low air mattress ICU bed for comfortable position and to prevent skin breakdown report to [place] GUZMAN for continuity of care.
[2021-06-13 06:45] LABS: BASOPHILS # (AUTO) 0.1 K/uL (0.0-0.2); BASOPHILS % (AUTO) 0.4 % (0.0-2.0); EOSINOPHILS % (AUTO) 0.1 % (0.0-4.0); HEMATOCRIT 31.7 % (36-48); HEMOGLOBIN 10.4 g/dL (12.0-16.0); LYMPHOCYTES # (AUTO) 2.6 K/uL (1.0-5.5); LYMPHOCYTES % (AUTO) 17.4 % (20.5-51.5); MEAN CORPUSCULAR HEMOGLOBIN 28 pg (27-31); MEAN CORPUSCULAR HGB CONC 33 % (32-36); MEAN CORPUSCULAR VOLUME 86 fL (79.0-98.0); MONOCYTES % (AUTO) 13.4 % (1.7-9.3); NEUTROPHILS # (AUTO) 10.4 K/uL (1.8-7.7); NEUTROPHILS % (AUTO) 68.7 % (40.0-70.0); RED CELL DISTRIBUTION WIDTH 20.6 % (9.0-15.0); WHITE BLOOD COUNT (AUTO) 15.1 K/uL (4.8-10.8)
--- NOTE | 2021-06-13 06:48 | NUR ---
Accucheck is 207. ER doctor made aware, no new orders.
[2021-06-13 07:03] LABS: ALANINE AMINOTRANSFERASE 49 U/L (12-78); ANION GAP 6 (5-15); ASPARTATE AMINOTRANSFERASE 137 U/L (10-37); CALCIUM 9.7 mg/dL (8.4-11.0); CHLORIDE 98 mmol/L (98-107); CREATININE 2.09 mg/dL (0.55-1.30); GLUCOSE 172 mg/dL (70-99); POTASSIUM 5.2 mmol/L (3.5-5.1); SODIUM SERUM 128 mmol/L (136-145); TOTAL BILIRUBIN 0.6 mg/dL (0.0-1.0); UREA NITROGEN, BLOOD 40 mg/dL (8-21)
--- NOTE | 2021-06-13 08:05 | NUR ---
Received orders from Nephrology consult Dr Rose. Will continue to monitor electrolytes
[2021-06-13] MEDS ORDERED: SODIUM CHLORIDE 500 MG TABLET PO ONE (08:15)
--- NOTE | 2021-06-13 08:15 | NUR ---
Spoke with Dr Land who was at bedside to assess patient.
[2021-06-13 08:17] LABS: PLATELET COUNT (AUTO) 279 K/uL (130-430)
[2021-06-13] MEDS: levETIRAcetam 500 MG IV PREMIX 100 ML IV SCH ×2 (08:46→21:37)
[2021-06-13] MEDS ORDERED: levETIRAcetam 500 MG IV PREMIX 100 ML IV SCH (09:00)
[2021-06-13 09:10] LABS: ANION GAP 6 (5-15); CALCIUM 9.3 mg/dL (8.4-11.0); CHLORIDE 97 mmol/L (98-107); CREATININE 1.93 mg/dL (0.55-1.30); GLUCOSE 223 mg/dL (70-99); POTASSIUM 4.8 mmol/L (3.5-5.1); SODIUM SERUM 125 mmol/L (136-145); UREA NITROGEN, BLOOD 35 mg/dL (8-21)
[2021-06-13 09:16] LABS: ALANINE AMINOTRANSFERASE 39 U/L (12-78); ALBUMIN 2.7 g/dL (3.4-4.8); ASPARTATE AMINOTRANSFERASE 115 U/L (10-37); TOTAL BILIRUBIN 0.5 mg/dL (0.0-1.0)
[2021-06-13] MEDS: D5NS 1,000 ML IV SCH (11:54)
[2021-06-13 15:15] LABS: ANION GAP 7 (5-15); CHLORIDE 100 mmol/L (98-107); CREATININE 1.73 mg/dL (0.55-1.30); GLUCOSE 277 mg/dL (70-99); POTASSIUM 4.7 mmol/L (3.5-5.1); SODIUM SERUM 128 mmol/L (136-145); UREA NITROGEN, BLOOD 33 mg/dL (8-21)
--- NOTE | 2021-06-13 19:20 | NUR ---
RECD REPORT JUST CAME FROM ED CONNECTED TO BEDSIDE MONITOR AND INITIAL ASSESSMENT DONE. CONTINUE CARE.
[2021-06-13] MEDS ORDERED: HYDR-4037 PO (21:28)
[2021-06-13] MEDS ORDERED: LOSA50TA3 PO (21:30)
[2021-06-13] MEDS ORDERED: MAGN400T10 PO (21:30)
[2021-06-13] MEDS ORDERED: CAT2PAT TD (21:35)
[2021-06-13] MEDS ORDERED: SODI10PO PO (21:37)
--- NOTE | 2021-06-13 23:00 | NUR ---
CALLED DAUGHTER TO CLARIFY CODE STATUS PATIENT HAS DNR POLTS IN HER CHART,DAUGHTER SAID SHES COMPLETE DNR
[2021-06-14] VITALS (23 sets, daily range): BP systolic 136–201
[2021-06-14] MEDS: D5NS 1,000 ML IV SCH ×2 (00:26→18:34)
[2021-06-14 02:52] LABS: ANION GAP 10 (5-15); CALCIUM 8.7 mg/dL (8.4-11.0); CHLORIDE 102 mmol/L (98-107); CREATININE 1.51 mg/dL (0.55-1.30); GLUCOSE 251 mg/dL (70-99); POTASSIUM 5.3 mmol/L (3.5-5.1); SODIUM SERUM 129 mmol/L (136-145); THYROID STIMULATING HORMONE 1.25 uIu/mL (0.36-3.74); UREA NITROGEN, BLOOD 27 mg/dL (8-21)
[2021-06-14] MEDS ORDERED: cefTRIAXone 1 GM IVPB PREMIX 50 ML IV ONE (06:05)
--- NOTE | 2021-06-14 06:20 | NUR ---
BP HIGH 182/[address] REEDER FOR ORDERS,ADVISED TO CALL DR BARNES SHES CLAY TEMPERER TILL 7AM AND HE DONT KNOW ANYTHING ABOUT THE PATIENT YET.PAGED DR BARNES AWAITING FOR REPLY
[2021-06-14] MEDS: cefTRIAXone 1 GM IVPB PREMIX 50 ML IV SCH (06:22)
[2021-06-14] MEDS ORDERED: LABETALOL 100 MG/ 20ML VIAL IVP ONE (06:30)
--- NOTE | 2021-06-14 06:35 | NUR ---
DR Colin CALLED AND MADE HER AWARE OF PATIENT bp HIGH THIS AM ORDERED LOBETALOL 10MG ivp STAT. SEE CPOE
[2021-06-14] MEDS ORDERED: LABETALOL 100 MG/ 20ML VIAL ONE (06:36)
--- NOTE | 2021-06-14 06:45 | NUR ---
ALL CARES DONE, CHG BATH GIVEN, TURN AND REPOSITION TO COMFORT, CONTINENT BUT SOME ACCIDENTS IN BETWEEN BEDPAN USED. NEURO INTACT BP START GOING UP EARLY AM CALLED PRIMARY FOR ORDERS DR BARNES AWARE. BP AFTER LOBETALOL IVP 131/69.
--- NOTE | 2021-06-14 07:00 | NUR ---
Olga Raman RN is caring for this patient today
[2021-06-14 07:01] LABS: ANION GAP 9 (5-15); CALCIUM 8.2 mg/dL (8.4-11.0); CHLORIDE 103 mmol/L (98-107); GLUCOSE 250 mg/dL (70-99); POTASSIUM 4.8 mmol/L (3.5-5.1); SODIUM SERUM 132 mmol/L (136-145); UREA NITROGEN, BLOOD 24 mg/dL (8-21)
--- NOTE | 2021-06-14 07:18 | NUR ---
Received this 86 year old female that presented to the ED during the Leaf Tinner s/p Mechanical Fall at home. Patient was found down by her daughter. Diagnosis post CT: Subarachnoid Hemorrhage. Presently, patient is not actively bleeding. Denies pain at this time. Hx: HTN, DM, and Hyperlipidemia. On arrival to ED, his BG was 21. BG was brought to 200. Neurologically, per Leaf Tinner RN, Patient has improved as patient is no longer lethargic. Fluent in Hungarian per Leaf Tinner. This AM, BP was 183/93. Patient was given Labetalol per Night RN. Beginning of AM Shift, patient is awake, alert and oriented x4. Denies pain. 0800: Temp 100.3, other VS stable. Denies pain, RA and saturating well. NPO at this time. On bedrest, uses the bed gu. Made patient comfortable before assessment. Will continue to monitor this patient. 1000: Passed swallow eval. Administered Tylenol 650mg for Temp of 100.3 with Metoprolol. Will continue to observe. Addendum: 06/14/21 at 1521 by Miguelina Prakash RN This note written by Olga Raman RN.
[2021-06-14] MEDS: levETIRAcetam 500 MG IV PREMIX 100 ML IV SCH ×2 (11:07→20:47)
[2021-06-14] MEDS: METOPROLOL TARTRATE 25 MG TABLET PO SCH ×2 (11:35→20:49)
[2021-06-14 16:34] LABS: ANION GAP 8 (5-15); CALCIUM 9.2 mg/dL (8.4-11.0); CHLORIDE 104 mmol/L (98-107); CREATININE 1.58 mg/dL (0.55-1.30); GLUCOSE 261 mg/dL (70-99); POTASSIUM 4.9 mmol/L (3.5-5.1); SODIUM SERUM 134 mmol/L (136-145); UREA NITROGEN, BLOOD 20 mg/dL (8-21)
[2021-06-14 17:48] LABS: ANION GAP 7 (5-15); CALCIUM 8.7 mg/dL (8.4-11.0); CHLORIDE 104 mmol/L (98-107); CREATININE 1.61 mg/dL (0.55-1.30); GLUCOSE 257 mg/dL (70-99); POTASSIUM 4.9 mmol/L (3.5-5.1); SODIUM SERUM 133 mmol/L (136-145); UREA NITROGEN, BLOOD 21 mg/dL (8-21)
[2021-06-14] MEDS: hydrALAZINE HCL 25 MG TABLET PO SCH ×2 (18:00→21:06)
--- NOTE | 2021-06-14 19:42 | NUR ---
Olga Raman, RN: Status remains stable enough for downgrade to TeleDiane Grider, at Bed Control informed. Night RN informed. Report given to the Water Maintenance Supervisor RN that will continue with the care of this patient. All stated protocols remain effective.
[2021-06-15] VITALS (20 sets, daily range): BP systolic 131–194
[2021-06-15] MEDS: D5NS 1,000 ML IV SCH (00:31)
[2021-06-15 01:43] LABS: ANION GAP 9 (5-15); CALCIUM 8.9 mg/dL (8.4-11.0); CHLORIDE 104 mmol/L (98-107); CREATININE 1.53 mg/dL (0.55-1.30); GLUCOSE 292 mg/dL (70-99); POTASSIUM 4.8 mmol/L (3.5-5.1); SODIUM SERUM 134 mmol/L (136-145); UREA NITROGEN, BLOOD 20 mg/dL (8-21)
[2021-06-15] MEDS: cloNIDine HCL 0.2 MG TABLET PO PRN ×2 (02:23→15:35)
[2021-06-15] MEDS: hydrALAZINE HCL 25 MG TABLET PO SCH ×3 (07:06→22:49)
--- NOTE | 2021-06-15 07:30 | NUR ---
Author: Elisha Solo RN Received report from THOMAS Matt. Patient is in bed. Not in any distress.
[2021-06-15 07:34] LABS: ANION GAP 11 (5-15); CALCIUM 8.4 mg/dL (8.4-11.0); CHLORIDE 103 mmol/L (98-107); CREATININE 1.47 mg/dL (0.55-1.30); GLUCOSE 269 mg/dL (70-99); SODIUM SERUM 135 mmol/L (136-145); UREA NITROGEN, BLOOD 20 mg/dL (8-21)
[2021-06-15] MEDS: levETIRAcetam 500 MG IV PREMIX 100 ML IV SCH ×2 (08:33→20:18)
[2021-06-15] MEDS: METOPROLOL TARTRATE 25 MG TABLET PO SCH ×3 (08:33→20:19)
[2021-06-15] MEDS: cefTRIAXone 1 GM IVPB PREMIX 50 ML IV SCH (08:33)
--- NOTE | 2021-06-15 10:24 | NUR ---
Dr. Wong recommended Speech Evaluation. Ordered Speech eval. Electrochemist called PT/ST dept & notified.
[2021-06-15 12:19] LABS: ANION GAP 7 (5-15); CALCIUM 8.6 mg/dL (8.4-11.0); CHLORIDE 105 mmol/L (98-107); CREATININE 1.57 mg/dL (0.55-1.30); GLUCOSE 398 mg/dL (70-99); SODIUM SERUM 131 mmol/L (136-145); UREA NITROGEN, BLOOD 21 mg/dL (8-21)
[2021-06-15] MEDS: SODIUM CHLORIDE 500 MG TABLET PO SCH ×2 (14:00→22:49)
--- NOTE | 2021-06-15 14:14 | NUR ---
Dietitian Recommendations Continue [facility] diet. Consider swallow evaluation. Consider d/c D5NS. Please refer to Nutrition Assessment for details. Signed: 06/15/21 at 1414 by Lizbet RON <Co-Signature Required> Co-Signed: 06/15/21 at [address] Addendum: 06/15/21 at 1414 by Lizbet RON Amended: Links added.
--- NOTE | 2021-06-15 16:49 | NUR ---
ST EVALUATION COMPLETED. ST TX NOT INDICATED AT THIS TIME RECOMMEND CONTINUE CURRENT REGULAR DIET.
--- NOTE | 2021-06-15 19:25 | NUR ---
PM SHIFT ASSESSMENT Patient is awake and alert. RR even and unlabored. SR on monitor. Skin warm and dry. IVF infusing. Safety precautions in place, call light within reach. Will continue to monitor.
[2021-06-16] VITALS (18 sets, daily range): BP systolic 107–180
[2021-06-16] MEDS: SODIUM CHLORIDE 500 MG TABLET PO SCH ×3 (05:50→22:27)
[2021-06-16] MEDS: hydrALAZINE HCL 25 MG TABLET PO SCH ×3 (05:50→22:27)
[2021-06-16] MEDS: cloNIDine HCL 0.2 MG TABLET PO PRN (06:38)
[2021-06-16 07:07] LABS: ANION GAP 8 (5-15); CALCIUM 8.7 mg/dL (8.4-11.0); CHLORIDE 105 mmol/L (98-107); CREATININE 1.48 mg/dL (0.55-1.30); GLUCOSE 280 mg/dL (70-99); SODIUM SERUM 135 mmol/L (136-145); UREA NITROGEN, BLOOD 20 mg/dL (8-21)
[2021-06-16] MEDS: METOPROLOL TARTRATE 25 MG TABLET PO SCH ×2 (08:38→21:16)
[2021-06-16] MEDS: HYDROCHLOROTHIAZIDE 25 MG TABLET (HCTZ) PO SCH (08:38)
[2021-06-16] MEDS: cefTRIAXone 1 GM IVPB PREMIX 50 ML IV SCH (08:39)
[2021-06-16] MEDS: levETIRAcetam 500 MG IV PREMIX 100 ML IV SCH ×2 (08:40→21:17)
--- NOTE | 2021-06-16 15:50 | NUR ---
Patient transferred to Telemetry Patient has been transferred to telemetry unit from ICU bed 2 to Telemetry room 103 bed A. Patient is resting in bed with no signs of distress. Report given bedside to nurse on telemetry unit. All care has been assumed by the telemetry unit staff.
--- NOTE | 2021-06-16 19:20 | NUR ---
RECEIVED REPORT FROM CAMERON RN, ASSUMED CARE, AND STARTED ASSESSMENT. PATIENT'S FAMILY WAS AT THE BEDSIDE AND SHE WAS IN GOOD SPIRITS AND COPING WELL. WILL CONTINUE TO MONITOR AND ASSESS FOR SAFETY AND COMFORT.
--- NOTE | 2021-06-16 21:00 | NUR ---
CAMERON RN, STAYED LATE TO FINISH HIS CHARTING. HE HAD DONE AN ACCUCHECK ON THE PATIENT ONLY TO FIND THAT THE PATIENT HAD A BLOOD SUGAR OF 354 AND HAD NO SLIDING SCALE. HE CALLED DR BATES AND WAS WAITING FOR THE CALLBACK. I TOLD HIM I WOULD TAKE CARE OF IT, AND THAT HE COULD GO. HE DID. DR BATES CALLED AND THE PATIENT WAS PLACED ON A SLIDING SCALE PER DR BATES'S ORDERS.
--- NOTE | 2021-06-16 23:00 | NUR ---
BECAUSE THE TIME HAD ELAPSED BETWEEN THE ORIGINAL FSBS AND MY OPPORTUNITY TO GIVE INSULIN, I RECHECKED THE PATIENT'S BLOOD SUGAR PER MY CHARGE NURSE. THE NEW FSBS WAS 362, AND THE PATIENT WAS COVERED WITH 10 UNITS OF REGULAR INSULIN PER THE NEWLY INSTITUTED SLIDING SCALE. WILL CONTINUE TO MONITOR AND ASSESS FOR SAFETY AND COMFORT.
[2021-06-16] MEDS: INSULIN REGULAR, HUMAN 100 UNITS/ML, 10 ML VIAL (humuLIN R) SUBCUT PRN (23:10)
[2021-06-17 01:36] VITALS: BP_SYST 163
[2021-06-17] MEDS: SODIUM CHLORIDE 500 MG TABLET PO SCH ×2 (06:47→14:40)
[2021-06-17] MEDS: hydrALAZINE HCL 25 MG TABLET PO SCH ×2 (06:50→14:40)
--- NOTE | 2021-06-17 07:30 | NUR ---
REPORT GIVEN TO CAMERON RN, AND CARE TURNED OVER TO HIM.
[2021-06-17 08:00] VITALS: BP_SYST 143
[2021-06-17] MEDS ORDERED: HYDR-4039 PO (08:41)
[2021-06-17] MEDS ORDERED: LEVE500T21 PO (08:41)
[2021-06-17] MEDS ORDERED: METO-442 PO (08:41)
[2021-06-17] MEDS ORDERED: HYDR25TA4 PO (08:41)
[2021-06-17 09:02] LABS: ANION GAP 7 (5-15); CALCIUM 9.8 mg/dL (8.4-11.0); CHLORIDE 104 mmol/L (98-107); CREATININE 1.49 mg/dL (0.55-1.30); GLUCOSE 98 mg/dL (70-99); POTASSIUM 4.2 mmol/L (3.5-5.1); SODIUM SERUM 135 mmol/L (136-145); UREA NITROGEN, BLOOD 25 mg/dL (8-21)
--- NOTE | 2021-06-17 09:34 | NUR ---
DISCHARGE PLANNING; spoke with Yolanda Matute about pt. discharge with Home Health and PT, faxed orders needed.
[2021-06-17] MEDS: levETIRAcetam 500 MG IV PREMIX 100 ML IV SCH (09:43)
[2021-06-17] MEDS: cefTRIAXone 1 GM IVPB PREMIX 50 ML IV SCH (09:44)
[2021-06-17] MEDS: HYDROCHLOROTHIAZIDE 25 MG TABLET (HCTZ) PO SCH (09:47)
[2021-06-17] MEDS: METOPROLOL TARTRATE 25 MG TABLET PO SCH (09:47)
[2021-06-17 11:23] VITALS: BP_SYST 139
[2021-06-17] MEDS: INSULIN REGULAR, HUMAN 100 UNITS/ML, 10 ML VIAL (humuLIN R) SUBCUT PRN (12:37)
[2021-06-17] MEDS: cloNIDine HCL 0.2 MG TABLET PO PRN (15:08)
--- NOTE | 2021-06-17 15:12 | NUR ---
Pt's daughter, Vera called to say that she was coming to pick her mother up for the discharge. She is bringing clothes for her mother and will sign the discharge paperwork upon arrival. Pt's blood pressure is high at this time. Clonidine 0.2 mg has been administered. Will continue to monitor.
--- NOTE | 2021-06-17 15:35 | NUR ---
PT'S BLOOD PRESSURE IS STILL ELEVATED. NOTIFIED. NEW ORDER FOR HYDRALAZINE 5MG IV PUSH FOR ELEVATED BLOOD PRESSURE.
--- NOTE | 2021-06-17 15:45 | NUR ---
PT'S IV IS NOT FUNSTIONING. 2 IVS ATTEMPTED BY TWO NURSES TO NO SUCCESS. PT IS ABLE TO SWALLOW. NEW ORDER FOR CLONIDINE 0.2 MG FOR ELEVATED BLOOD PRESSURE. WILL CONTIUE TO MONITOR
[2021-06-17] MEDS ORDERED: hydrALAZINE HCL 20 MG/ML VIAL IVP ONE (16:00)
--- NOTE | 2021-06-17 16:00 | NUR ---
ATTENDING MD DR BATES WAS CALLED, RE: PT IS FOR DISCHARGE BUT BP IS 196/98. LEFT A VOICE MESSAGE .
[2021-06-17] MEDS ORDERED: cloNIDine HCL 0.2 MG TABLET PO ONE (17:15)
[2021-06-17 18:40] VITALS: BP_SYST 134
--- NOTE | 2021-06-17 19:05 | NUR ---
BLOOD PRESSURE HAS STABILIZED. BLOOD PRESSURE IS ,130 SYSTOLIC. PT DENIES HEADACHE, SOB. PT INSTRUACTIONS HAS BEEN EXPLAINED TO DAUGHTER, JAYCOB. FAMILY VERBALIZES UNDERSTANDING. WILL CYLINDER GRINDER TH EPTS MEDS FROM THE PHARMACY. PT IS STABLE AT D/C.
== END 2021-06-17 19:15 | disposition home health service (06) | DRG 86 ==
LOC: SED 22:37 → SIC 06-13 03:41 → STU 06-16 15:19
PROVIDERS: ADMIT General Practice; ATTEND General Practice
DX: S06.6X0A Traumatic subarachnoid hemorrhage without loss of consciousness, initial encounter (principal); E87.1 Hypo-osmolality and hyponatremia; E11.649 Type 2 diabetes mellitus with hypoglycemia without coma; E11.22 Type 2 diabetes mellitus with diabetic chronic kidney disease; W18.39XA Other fall on same level, initial encounter; S00.83XA Contusion of other part of head, initial encounter; E11.65 Type 2 diabetes mellitus with hyperglycemia; I12.9 Hypertensive chronic kidney disease with stage 1 through stage 4 chronic kidney disease, or unspecified chronic kidney disease; Z20.822 Contact with and (suspected) exposure to COVID-19; N18.9 Chronic kidney disease, unspecified; Z88.1 Allergy status to other antibiotic agents; Z91.09 Other allergy status, other than to drugs and biological substances; Z79.899 Other long term (current) drug therapy; Z79.4 Long term (current) use of insulin; Y93.89 Activity, other specified; Y99.8 Other external cause status; Y92.009 Unspecified place in unspecified non-institutional (private) residence as the place of occurrence of the external cause
CPT/HCPCS: 36415; 70450-TC; 71045; 71250-TC; 72125-TC; 76376; 80048; 80053; 80307; 81000; 82962; 83036; 83735; 84443; 84484; 85025; 87081; 92610-GN; 94760; 96374; 97116-GP; 97530-GP; 99291; G0378; J0696; J1953; J3490

== ENCOUNTER 2021-07-07 00:49 | Observation (INO) | payer OTHER, MEDICAID ==
[2021-07-07] VITALS (8 sets, daily range): BP systolic 101–199
[~2021-07-07] VITALS: Ht 152.4 cm; Wt 68.0 kg
[~2021-07-07 00:49] MED LIST changes: -ASPI-1393 PO; +HYDR-4039 PO; +HYDR25TA4 PO; +LEVE500T21 PO; -LISI-219 PO; +MAGN400T10 PO; +METO-442 PO; -NAPR-1172 PO; +SODI10PO PO; -TOPXL100 PO
[2021-07-07] MEDS ORDERED: hydrALAZINE HCL 20 MG/ML VIAL IVP ONE (01:00)
[2021-07-07] MEDS ORDERED: ENALAPRILAT DIHYDRATE 1.25 MG/ML VIAL IVP ONE (01:00)
[2021-07-07 02:46] LABS: BASOPHILS % (AUTO) 0.4 % (0.0-2.0); EOSINOPHILS # (AUTO) 0.1 K/uL (0.0-0.4); EOSINOPHILS % (AUTO) 0.7 % (0.0-4.0); HEMATOCRIT 35.8 % (36-48); HEMOGLOBIN 11.7 g/dL (12.0-16.0); LYMPHOCYTES # (AUTO) 1.8 K/uL (1.0-5.5); LYMPHOCYTES % (AUTO) 22.8 % (20.5-51.5); MEAN CORPUSCULAR HEMOGLOBIN 28 pg (27-31); MEAN CORPUSCULAR HGB CONC 33 % (32-36); MEAN CORPUSCULAR VOLUME 87 fL (79.0-98.0); MONOCYTES % (AUTO) 12.8 % (1.7-9.3); NEUTROPHILS % (AUTO) 63.3 % (40.0-70.0); PLATELET COUNT (AUTO) 275 K/uL (130-430); RED BLOOD CELL COUNT(AUTO) 4.14 MIL/uL (4.2-6.2); RED CELL DISTRIBUTION WIDTH 17.6 % (9.0-15.0); WHITE BLOOD COUNT (AUTO) 7.8 K/uL (4.8-10.8)
[2021-07-07 02:47] LABS: ANION GAP 8 (5-15); CALCIUM 8.3 mg/dL (8.4-11.0); CHLORIDE 101 mmol/L (98-107); CREATININE 1.58 mg/dL (0.55-1.30); GLUCOSE 211 mg/dL (70-99); POTASSIUM 3.9 mmol/L (3.5-5.1); SODIUM SERUM 133 mmol/L (136-145); UREA NITROGEN, BLOOD 22 mg/dL (8-21)
[2021-07-07 03:00] LABS: ALANINE AMINOTRANSFERASE 13 U/L (12-78); ALBUMIN 2.9 g/dL (3.4-4.8); ASPARTATE AMINOTRANSFERASE 18 U/L (10-37); TOTAL BILIRUBIN 0.2 mg/dL (0.0-1.0)
[2021-07-07] MEDS: METOPROLOL TARTRATE 50 MG TABLET PO SCH ×3 (03:30→21:17)
[2021-07-07] MEDS ORDERED: ALBUTEROL SULFATE 0.083% 2.5 MG/3 ML VIAL.NEB INH PRN (03:30)
[2021-07-07] MEDS ORDERED: HYDROcodone/ACETAMIN 5-325 MG TAB (NORCO/ VICODIN) PO PRN (03:30)
[2021-07-07] MEDS ORDERED: ONDANSETRON HCL 4 MG/2 ML VIAL IVP PRN (03:30)
[2021-07-07] MEDS: hydrALAZINE HCL 25 MG TABLET PO SCH ×3 (06:47→21:20)
[2021-07-07] MEDS: INSULIN REGULAR, HUMAN 100 UNITS/ML, 10 ML VIAL (humuLIN R) SUBCUT PRN ×4 (06:55→21:24)
[2021-07-07 08:00] LABS: ALANINE AMINOTRANSFERASE 14 U/L (12-78); ALBUMIN 2.8 g/dL (3.4-4.8); ANION GAP 7 (5-15); ASPARTATE AMINOTRANSFERASE 19 U/L (10-37); CALCIUM 8.4 mg/dL (8.4-11.0); CHLORIDE 102 mmol/L (98-107); CREATININE 1.56 mg/dL (0.55-1.30); GLUCOSE 273 mg/dL (70-99); SODIUM SERUM 132 mmol/L (136-145); TOTAL BILIRUBIN 0.2 mg/dL (0.0-1.0); UREA NITROGEN, BLOOD 22 mg/dL (8-21)
[2021-07-07] MEDS: levETIRAcetam 500 MG TABLET PO SCH ×2 (08:33→21:17)
[2021-07-07] MEDS: ATORVASTATIN 20 MG TABLET PO SCH (08:33)
[2021-07-07] MEDS: MAGNESIUM OXIDE 400 MG TABLET PO SCH (08:33)
[2021-07-07] MEDS: HYDROCHLOROTHIAZIDE 25 MG TABLET (HCTZ) PO SCH (08:33)
[2021-07-07] MEDS: ASPIRIN 81 MG TAB.CHEW PO SCH (08:34)
[2021-07-07 08:42] LABS: BASOPHILS % (AUTO) 0.4 % (0.0-2.0); EOSINOPHILS # (AUTO) 0.1 K/uL (0.0-0.4); EOSINOPHILS % (AUTO) 0.8 % (0.0-4.0); HEMATOCRIT 35.5 % (36-48); HEMOGLOBIN 11.6 g/dL (12.0-16.0); LYMPHOCYTES # (AUTO) 2.6 K/uL (1.0-5.5); LYMPHOCYTES % (AUTO) 30.8 % (20.5-51.5); MEAN CORPUSCULAR HEMOGLOBIN 29 pg (27-31); MEAN CORPUSCULAR HGB CONC 33 % (32-36); MEAN CORPUSCULAR VOLUME 87 fL (79.0-98.0); MONOCYTES # (AUTO) 1.2 K/uL (0.0-1.0); MONOCYTES % (AUTO) 13.8 % (1.7-9.3); NEUTROPHILS # (AUTO) 4.5 K/uL (1.8-7.7); NEUTROPHILS % (AUTO) 54.2 % (40.0-70.0); PLATELET COUNT (AUTO) 283 K/uL (130-430); RED BLOOD CELL COUNT(AUTO) 4.07 MIL/uL (4.2-6.2); RED CELL DISTRIBUTION WIDTH 17.9 % (9.0-15.0); WHITE BLOOD COUNT (AUTO) 8.3 K/uL (4.8-10.8)
[2021-07-07] MEDS: hydrALAZINE HCL 20 MG/ML VIAL IVP PRN ×2 (12:38→17:33)
[2021-07-08 00:38] VITALS: BP_SYST 154
[2021-07-08 06:41] VITALS: BP_SYST 186
[2021-07-08] MEDS: INSULIN REGULAR, HUMAN 100 UNITS/ML, 10 ML VIAL (humuLIN R) SUBCUT PRN ×4 (06:46→20:47)
[2021-07-08] MEDS: hydrALAZINE HCL 25 MG TABLET PO SCH ×3 (06:47→20:30)
[2021-07-08 08:00] VITALS: BP_SYST 160
[2021-07-08] MEDS: ASPIRIN 81 MG TAB.CHEW PO SCH (08:56)
[2021-07-08] MEDS: MAGNESIUM OXIDE 400 MG TABLET PO SCH (08:56)
[2021-07-08] MEDS: METOPROLOL TARTRATE 50 MG TABLET PO SCH ×2 (08:56→20:30)
[2021-07-08] MEDS: HYDROCHLOROTHIAZIDE 25 MG TABLET (HCTZ) PO SCH (08:57)
[2021-07-08] MEDS: ATORVASTATIN 20 MG TABLET PO SCH (08:57)
[2021-07-08] MEDS: levETIRAcetam 500 MG TABLET PO SCH ×2 (08:57→20:31)
[2021-07-08] MEDS: hydrALAZINE HCL 20 MG/ML VIAL IVP PRN (12:22)
[2021-07-08 12:53] VITALS: BP_SYST 160
[2021-07-08 16:00] VITALS: BP_SYST 160
[2021-07-09 01:13] VITALS: BP_SYST 158
[2021-07-09] MEDS: hydrALAZINE HCL 25 MG TABLET PO SCH ×2 (06:00→13:59)
[2021-07-09 08:00] VITALS: BP_SYST 153
[2021-07-09] MEDS: MAGNESIUM OXIDE 400 MG TABLET PO SCH (08:29)
[2021-07-09] MEDS: ATORVASTATIN 20 MG TABLET PO SCH (08:30)
[2021-07-09] MEDS: levETIRAcetam 500 MG TABLET PO SCH ×2 (08:30→19:24)
[2021-07-09] MEDS: HYDROCHLOROTHIAZIDE 25 MG TABLET (HCTZ) PO SCH (08:30)
[2021-07-09] MEDS: ASPIRIN 81 MG TAB.CHEW PO SCH (08:31)
[2021-07-09] MEDS: METOPROLOL TARTRATE 50 MG TABLET PO SCH ×2 (08:31→19:25)
[2021-07-09] MEDS ORDERED: SODIUM ZIRCONIUM CYCLOSILICATE 10 GM POWD.PACK PO SCH (09:00)
[2021-07-09] MEDS ORDERED: HYDR100T25 PO (11:41)
[2021-07-09 11:48] VITALS: BP_SYST 162
[2021-07-09 16:05] VITALS: BP_SYST 150
[2021-07-09] MEDS: hydrALAZINE HCL 20 MG/ML VIAL IVP PRN (16:06)
[2021-07-09] MEDS: INSULIN REGULAR, HUMAN 100 UNITS/ML, 10 ML VIAL (humuLIN R) SUBCUT PRN ×2 (17:01→19:41)
[2021-07-09 19:55] VITALS: BP_SYST 98
[2021-07-09 20:04] VITALS: BP_SYST 128
== END 2021-07-09 20:24 | disposition home or self-care (01) ==
LOC: SED 00:49 → STU 03:19
PROVIDERS: ADMIT Internal Medicine Hospice and Palliative Medicine; ATTEND Internal Medicine Hospice and Palliative Medicine
DX: R55 Syncope and collapse (principal); Z20.822 Contact with and (suspected) exposure to COVID-19; I12.9 Hypertensive chronic kidney disease with stage 1 through stage 4 chronic kidney disease, or unspecified chronic kidney disease; E11.22 Type 2 diabetes mellitus with diabetic chronic kidney disease; N18.2 Chronic kidney disease, stage 2 (mild); E11.649 Type 2 diabetes mellitus with hypoglycemia without coma; F03.90 Unspecified dementia, unspecified severity, without behavioral disturbance, psychotic disturbance, mood disturbance, and anxiety; I48.91 Unspecified atrial fibrillation; Z86.79 Personal history of other diseases of the circulatory system; Z51.5 Encounter for palliative care; Z86.73 Personal history of transient ischemic attack (TIA), and cerebral infarction without residual deficits; Z79.899 Other long term (current) drug therapy
CPT/HCPCS: 36415; 71045; 80053; 82962 ×3; 84484; 85025; 87426; 94760; 96372 ×3; 96374; 96375; 96376 ×3; 99291; G0378 ×3; J0360 ×3; J1815

== ENCOUNTER 2022-03-16 22:11 | Inpatient (IN) | payer OTHER, MEDICAID ==
[~2022-03-16] VITALS: Ht 157.5 cm; Wt 67.6 kg
[~2022-03-16 22:11] MED LIST changes: -HYDR-4039 PO; +HYDR100T25 PO
[2022-03-16 22:18] VITALS: BP_SYST 162
[2022-03-16] MEDS ORDERED: MORPHINE 2 MG/ML INJ. SYRINGE IVP ONE (23:00)
[2022-03-16] MEDS ORDERED: ACETAMINOPHEN I.V. 1000 MG 100 ML IV ONE (23:00)
[2022-03-16] MEDS ORDERED: ONDANSETRON HCL 4 MG/2 ML VIAL IVP ONE (23:00)
[2022-03-17 00:05] LABS: BASOPHILS # (AUTO) 0.1 K/uL (0.0-0.2); BASOPHILS % (AUTO) 0.4 % (0.0-2.0); EOSINOPHILS % (AUTO) 0.1 % (0.0-4.0); HEMATOCRIT 29.6 % (36-48); HEMOGLOBIN 9.6 g/dL (12.0-16.0); LYMPHOCYTES % (AUTO) 5.6 % (20.5-51.5); MEAN CORPUSCULAR HEMOGLOBIN 30 pg (27-31); MEAN CORPUSCULAR HGB CONC 33 % (32-36); MEAN CORPUSCULAR VOLUME 91 fL (79.0-98.0); MONOCYTES % (AUTO) 10.8 % (1.7-9.3); NEUTROPHILS % (AUTO) 83.1 % (40.0-70.0); PLATELET COUNT (AUTO) 435 K/uL (130-430); RED BLOOD CELL COUNT(AUTO) 3.26 MIL/uL (4.2-6.2); WHITE BLOOD COUNT (AUTO) 18.1 K/uL (4.8-10.8)
[2022-03-17 00:08] LABS: ANION GAP 9 (5-15); CALCIUM 9.4 mg/dL (8.4-11.0); CHLORIDE 95 mmol/L (98-107); CREATININE 1.86 mg/dL (0.55-1.30); UREA NITROGEN, BLOOD 50 mg/dL (8-21)
[2022-03-17 00:11] LABS: ALANINE AMINOTRANSFERASE 58 U/L (12-78); ALBUMIN 2.2 g/dL (3.4-4.8); ASPARTATE AMINOTRANSFERASE 28 U/L (10-37); TOTAL BILIRUBIN 0.5 mg/dL (0.0-1.0)
[2022-03-17 00:12] LABS: PROTHROMBIN TIME 10.6 SECS (9.5-12.5)
[2022-03-17 00:18] LABS: GLUCOSE 564 mg/dL (70-99)
[2022-03-17] MEDS ORDERED: NACL 0.9% 1,000 ML IV ONE (00:30)
[2022-03-17] MEDS ORDERED: INSULIN REGULAR, HUMAN 100 UNITS/ML, 3 ML VIAL IV ONE (01:00)
[2022-03-17] MEDS ORDERED: cefTRIAXone 1 GM IVPB PREMIX 50 ML IV ONE (01:00)
[2022-03-17] MEDS ORDERED: INSULIN NPH/REGULAR 70-30, 100 UNITS/ML, 3 ML VIAL ONE (01:12)
[2022-03-17] MEDS ORDERED: MORPHINE 4 MG INJ. 4 MG/ML VIAL IVP ONE (01:30)
[2022-03-17] MEDS ORDERED: MORPHINE 2 MG/ML INJ. SYRINGE ONE (01:38)
[2022-03-17] MEDS ORDERED: D5/0.45 NS 1,000 ML IV SCH (03:15)
[2022-03-17 05:56] VITALS: BP_SYST 115
[2022-03-17] MEDS ORDERED: DEXTROSE 50% JECT 50 ML DISP.SYRIN IVP PRN (06:45)
[2022-03-17] MEDS ORDERED: INSULIN REGULAR, HUMAN 100 UNITS/ML, 3 ML VIAL (humuLIN R) SUBCUT PRN (06:45)
[2022-03-17] MEDS ORDERED: D5W 1,000 ML IV PRN ×2 (06:45→07:00)
[2022-03-17] MEDS ORDERED: NALOXONE HCL 0.4 MG/ML AMP (NARCAN) IVP PRN (06:45)
[2022-03-17] MEDS ORDERED: NACL 0.9% 1,000 ML IV SCH (06:45)
[2022-03-17] MEDS ORDERED: GLUCOSE (DEXTROSE) ORAL GEL -Adults PO PRN ×2 (06:45→07:00)
[2022-03-17] MEDS ORDERED: INSULIN REGULAR, HUMAN 10 UNITS/0.1 ML, 3 ML VIAL SUBCUT ONE (06:45)
[2022-03-17] MEDS ORDERED: DEXTROSE 50%-WATER 50 ML DISP.SYRIN IVP PRN (07:00)
[2022-03-17] MEDS: NACL 0.9% 1,000 ML IV SCH ×2 (07:12→20:30)
[2022-03-17 08:00] VITALS: BP_SYST 149
[2022-03-17] MEDS ORDERED: INSULIN REGULAR, HUMAN 10 UNITS/0.1 ML, 3 ML VIAL IVP ONE (09:00)
[2022-03-17] MEDS ORDERED: ROCURONIUM BROMIDE 10 MG/ML (ZEMURON) ONE (11:00)
[2022-03-17] MEDS ORDERED: PROPOFOL 200MG/ 20ML VIAL (DIPRIVAN) IV ONE (11:00)
[2022-03-17] MEDS ORDERED: ceFAZolin SODIUM 1 GM VIAL ONE (11:00)
[2022-03-17] MEDS ORDERED: NS IRRIG SOLN 1000 ML IR ONE (11:00)
[2022-03-17] MEDS ORDERED: NS 1000 ML IV.SOLN IV ONE (11:00)
[2022-03-17] MEDS ORDERED: HYDROmorphone 2 MG/ML VIAL ONE (11:00)
[2022-03-17] MEDS ORDERED: BUPIVACAINE /EPINEPHRINE/PF 0.25% 30 ML VIAL ONE (11:00)
[2022-03-17] MEDS ORDERED: SEVOFLURANE 15 MIN GAS INH ONE (11:00)
[2022-03-17] MEDS ORDERED: EPINEPHrine HCL 1 MG/ML VIAL ONE (11:00)
[2022-03-17 12:21] VITALS: BP_SYST 141
[2022-03-17] MEDS: MORPHINE 4 MG INJ. 4 MG/ML VIAL IVP PRN (15:08)
[2022-03-17 16:43] VITALS: BP_SYST 126
[2022-03-17 17:17] LABS: BILIRUBIN,URINE NEGATIVE (NEGATIVE); BLOOD, URINE NEGATIVE (NEGATIVE); COLOR,URINE YELLOW (YELLOW); GLUCOSE,URINE 3+ (NEGATIVE); KETONES,URINE NEGATIVE (NEGATIVE); LEUKOCYTE ESTERASE ,URINE 3+ (NEGATIVE); NITRITE, URINE NEGATIVE (NEGATIVE); PH,URINE 5.5 (5.0-8.0); PROTEIN URINE 2+ (NEGATIVE); UROBILINOGEN,URINE 0.2 (0.2-1.0)
[2022-03-17 17:29] LABS: CLARITY/URINE HAZY (CLEAR)
[2022-03-17 17:34] LABS: BACTERIA,URINE MODERATE /HPF (None Seen); MUCUS,URINE None Seen /LPF (None Seen); RBC,URINE 0-3 /HPF (0-3); WBC,URINE >100 /HPF (0-3)
[2022-03-17] MEDS: INSULIN LISPRO SLIDING SCALE 100 UNITS/ML, 3 ML VIAL (humaLOG) SUBCUT PRN ×2 (18:31→20:39)
[2022-03-17 20:00] VITALS: BP_SYST 137
[2022-03-17] MEDS: cefTRIAXone 1 GM IVPB PREMIX 50 ML IV SCH (20:35)
[2022-03-18 00:59] VITALS: BP_SYST 131
[2022-03-18] MEDS: MORPHINE 4 MG INJ. 4 MG/ML VIAL IVP PRN ×2 (04:56→17:42)
[2022-03-18] MEDS: ONDANSETRON HCL 4 MG/2 ML VIAL IVP PRN (04:56)
[2022-03-18] MEDS: INSULIN LISPRO SLIDING SCALE 100 UNITS/ML, 3 ML VIAL (humaLOG) SUBCUT PRN ×4 (05:51→22:14)
[2022-03-18 06:22] LABS: BASOPHILS # (AUTO) 0.1 K/uL (0.0-0.2); BASOPHILS % (AUTO) 0.4 % (0.0-2.0); EOSINOPHILS % (AUTO) 0.2 % (0.0-4.0); HEMATOCRIT 30.5 % (36-48); LYMPHOCYTES # (AUTO) 3.3 K/uL (1.0-5.5); LYMPHOCYTES % (AUTO) 15.9 % (20.5-51.5); MEAN CORPUSCULAR HEMOGLOBIN 30 pg (27-31); MEAN CORPUSCULAR HGB CONC 33 % (32-36); MEAN CORPUSCULAR VOLUME 92 fL (79.0-98.0); MONOCYTES # (AUTO) 2.9 K/uL (0.0-1.0); MONOCYTES % (AUTO) 14.1 % (1.7-9.3); NEUTROPHILS # (AUTO) 14.2 K/uL (1.8-7.7); PLATELET COUNT (AUTO) 435 K/uL (130-430); RED BLOOD CELL COUNT(AUTO) 3.33 MIL/uL (4.2-6.2); RED CELL DISTRIBUTION WIDTH 13.8 % (9.0-15.0); WHITE BLOOD COUNT (AUTO) 20.5 K/uL (4.8-10.8)
[2022-03-18 06:46] LABS: ALANINE AMINOTRANSFERASE 41 U/L (12-78); ALBUMIN 2.3 g/dL (3.4-4.8); ANION GAP 12 (5-15); ASPARTATE AMINOTRANSFERASE 16 U/L (10-37); CALCIUM 9.9 mg/dL (8.4-11.0); CHLORIDE 101 mmol/L (98-107); GLUCOSE 288 mg/dL (70-99); TOTAL BILIRUBIN 0.5 mg/dL (0.0-1.0); UREA NITROGEN, BLOOD 58 mg/dL (8-21)
[2022-03-18 07:46] VITALS: BP_SYST 167
[2022-03-18] MEDS ORDERED: SODIUM POLYSTYRENE SULFONATE 15 GM/60 ML UDBTL RC ONE ×2 (08:30→13:45)
[2022-03-18] MEDS: NACL 0.9% 1,000 ML IV SCH (09:02)
[2022-03-18] MEDS: MORPHINE 2 MG/ML INJ. SYRINGE IVP PRN (09:16)
[2022-03-18 11:24] VITALS: BP_SYST 160
[2022-03-18 12:24] LABS: NEUTROPHILS % (AUTO) 69.4 % (40.0-70.0)
[2022-03-18 15:24] VITALS: BP_SYST 160
[2022-03-18 20:00] VITALS: BP_SYST 182
[2022-03-18] MEDS ORDERED: ACETAMINOPHEN 325 MG TABLET PO ONE (20:15)
[2022-03-18] MEDS: LABETALOL 100 MG/ 20ML VIAL IVP PRN (20:34)
[2022-03-18 21:00] VITALS: BP_SYST 163
[2022-03-18] MEDS ORDERED: ATORVASTATIN 20 MG TABLET PO SCH (21:30)
[2022-03-18] MEDS ORDERED: SODIUM POLYSTYRENE SULFONATE 15 GM/60 ML UDBTL PO ONE (21:30)
[2022-03-18] MEDS ORDERED: levETIRAcetam 500 MG TABLET PO SCH (21:30)
[2022-03-18] MEDS: cefTRIAXone 1 GM IVPB PREMIX 50 ML IV SCH (22:28)
[2022-03-19] VITALS (7 sets, daily range): BP systolic 129–174
[2022-03-19] MEDS: ONDANSETRON HCL 4 MG/2 ML VIAL IVP PRN (00:03)
[2022-03-19] MEDS: MORPHINE 4 MG INJ. 4 MG/ML VIAL IVP PRN ×2 (00:04→06:26)
[2022-03-19] MEDS ORDERED: ACETAMINOPHEN 325 MG TABLET PO PRN (05:00)
[2022-03-19] MEDS: hydrALAZINE HCL 25 MG TABLET PO SCH ×4 (06:00→17:02)
[2022-03-19] MEDS: INSULIN LISPRO SLIDING SCALE 100 UNITS/ML, 3 ML VIAL (humaLOG) SUBCUT PRN ×3 (06:33→17:01)
[2022-03-19 08:32] LABS: ANION GAP 12 (5-15); CALCIUM 9.2 mg/dL (8.4-11.0); CHLORIDE 108 mmol/L (98-107); CREATININE 2.07 mg/dL (0.55-1.30); UREA NITROGEN, BLOOD 60 mg/dL (8-21)
[2022-03-19 08:36] LABS: BASOPHILS % (AUTO) 0.2 % (0.0-2.0); HEMATOCRIT 26.3 % (36-48); HEMOGLOBIN 8.6 g/dL (12.0-16.0); LYMPHOCYTES # (AUTO) 1.7 K/uL (1.0-5.5); LYMPHOCYTES % (AUTO) 8.7 % (20.5-51.5); MEAN CORPUSCULAR HEMOGLOBIN 31 pg (27-31); MEAN CORPUSCULAR HGB CONC 33 % (32-36); MEAN CORPUSCULAR VOLUME 93 fL (79.0-98.0); MONOCYTES # (AUTO) 1.9 K/uL (0.0-1.0); MONOCYTES % (AUTO) 9.8 % (1.7-9.3); NEUTROPHILS # (AUTO) 15.5 K/uL (1.8-7.7); NEUTROPHILS % (AUTO) 81.3 % (40.0-70.0); PLATELET COUNT (AUTO) 395 K/uL (130-430); RED BLOOD CELL COUNT(AUTO) 2.82 MIL/uL (4.2-6.2); RED CELL DISTRIBUTION WIDTH 14.3 % (9.0-15.0); WHITE BLOOD COUNT (AUTO) 19.1 K/uL (4.8-10.8)
[2022-03-19] MEDS: levETIRAcetam 500 MG TABLET PO SCH ×2 (08:37→21:00)
[2022-03-19] MEDS: METOPROLOL TARTRATE 50 MG TABLET PO SCH ×2 (08:37→21:00)
[2022-03-19] MEDS: ATORVASTATIN 20 MG TABLET PO SCH (08:37)
[2022-03-19] MEDS: MAGNESIUM OXIDE 400 MG TABLET PO SCH (08:38)
[2022-03-19] MEDS: NACL 0.9% 1,000 ML IV SCH ×2 (08:38→12:20)
[2022-03-19] MEDS: LABETALOL 100 MG/ 20ML VIAL IVP PRN (08:42)
[2022-03-19 08:59] LABS: GLUCOSE 402 mg/dL (70-99)
[2022-03-19] MEDS ORDERED: INSULIN REGULAR, HUMAN 100 UNITS/ML, 3 ML VIAL SUBCUT ONE (10:30)
[2022-03-19] MEDS ORDERED: SODIUM POLYSTYRENE SULFONATE 15 GM/60 ML UDBTL PO ONE (10:30)
[2022-03-19] MEDS ORDERED: INSULIN Lispro Prot/Lispro MIX 75-25, 100 UNITS/ML, 10 ML VIAL SQ SCH ×2 (11:30→17:00)
[2022-03-19] MEDS ORDERED: amLODIPine BESYLATE 5 MG TABLET PO SCH (11:45)
[2022-03-19] MEDS ORDERED: HYDROCHLOROTHIAZIDE 25 MG TABLET (HCTZ) PO ONE (11:45)
[2022-03-19] MEDS ORDERED: ONDANSETRON HCL 4 MG/2 ML VIAL IVP PRN (13:00)
[2022-03-19] MEDS ORDERED: MORPHINE 4 MG INJ. 4 MG/ML VIAL IVP PRN (13:00)
[2022-03-19] MEDS ORDERED: MEPERIDINE HCL/PF 25 MG/ML DISP.SYRIN IVP PRN (13:00)
[2022-03-19 13:05] LABS: FREE T4 (FREE THYROXINE) 1.4 ng/dl (0.8-1.5); THYROID STIMULATING HORMONE 0.8 uIu/mL (0.36-3.74)
[2022-03-19] MEDS ORDERED: INSULIN NPH/REGULAR 70-30, 100 UNITS/ML, 3 ML VIAL SUBCUT SCH (17:00)
[2022-03-19] MEDS: cefTRIAXone 1 GM IVPB PREMIX 50 ML IV SCH (21:41)
[2022-03-19] MEDS ORDERED: dilTIAZem HCL IVP 5 MG/ML VIAL IVP PRN (23:30)
[2022-03-19] MEDS ORDERED: dilTIAZem HCL IVP 5 MG/ML VIAL ONE (23:53)
[2022-03-20 01:01] VITALS: BP_SYST 180
[2022-03-20] MEDS: MORPHINE 4 MG INJ. 4 MG/ML VIAL IVP PRN (01:28)
[2022-03-20] MEDS: METOPROLOL TARTRATE 50 MG TABLET PO SCH ×3 (03:26→21:21)
[2022-03-20] MEDS: NACL 0.9% 1,000 ML IV SCH ×2 (05:45→15:17)
[2022-03-20] MEDS: hydrALAZINE HCL 25 MG TABLET PO SCH ×4 (06:22→17:23)
[2022-03-20 06:58] LABS: BASOPHILS % (AUTO) 0.3 % (0.0-2.0); EOSINOPHILS % (AUTO) 0.1 % (0.0-4.0); HEMOGLOBIN 9.4 g/dL (12.0-16.0); LYMPHOCYTES # (AUTO) 1.7 K/uL (1.0-5.5); LYMPHOCYTES % (AUTO) 11.4 % (20.5-51.5); MEAN CORPUSCULAR HEMOGLOBIN 31 pg (27-31); MEAN CORPUSCULAR HGB CONC 34 % (32-36); MEAN CORPUSCULAR VOLUME 91 fL (79.0-98.0); MONOCYTES # (AUTO) 2.7 K/uL (0.0-1.0); NEUTROPHILS # (AUTO) 10.5 K/uL (1.8-7.7); NEUTROPHILS % (AUTO) 70.2 % (40.0-70.0); PLATELET COUNT (AUTO) 365 K/uL (130-430); RED CELL DISTRIBUTION WIDTH 14.6 % (9.0-15.0)
[2022-03-20] MEDS ORDERED: INSULIN NPH/REGULAR 70-30, 100 UNITS/ML, 3 ML VIAL SQ SCH ×2 (07:00)
[2022-03-20 07:15] LABS: ANION GAP 9 (5-15); C-REACTIVE PROTEIN QUANT 16.8 mg/dL (0-0.5); CALCIUM 8.4 mg/dL (8.4-11.0); CHLORIDE 116 mmol/L (98-107); GLUCOSE 188 mg/dL (70-99); PHOSPHORUS 3.2 mg/dL (2.7-4.5); UREA NITROGEN, BLOOD 52 mg/dL (8-21)
[2022-03-20 08:05] VITALS: BP_SYST 148
[2022-03-20] MEDS: levETIRAcetam 500 MG TABLET PO SCH ×2 (08:49→21:20)
[2022-03-20] MEDS: ATORVASTATIN 20 MG TABLET PO SCH (08:50)
[2022-03-20] MEDS: MAGNESIUM OXIDE 400 MG TABLET PO SCH (08:51)
[2022-03-20] MEDS ORDERED: HYDROCHLOROTHIAZIDE 25 MG TABLET (HCTZ) PO SCH (09:00)
[2022-03-20 09:38] LABS: RED BLOOD CELL COUNT(AUTO) 3.07 MIL/uL (4.2-6.2)
[2022-03-20 10:44] LABS: ERYTHROCYTE SEDIMENTATION RATE 78 MM/HR (0-20)
[2022-03-20 11:36] VITALS: BP_SYST 138
[2022-03-20] MEDS: INSULIN LISPRO SLIDING SCALE 100 UNITS/ML, 3 ML VIAL (humaLOG) SUBCUT PRN ×3 (12:04→21:30)
[2022-03-20 16:54] VITALS: BP_SYST 130
[2022-03-20] MEDS: INSULIN NPH/REGULAR 70-30, 100 UNITS/ML, 3 ML VIAL SUBCUT SCH (16:58)
[2022-03-20] MEDS: MORPHINE 2 MG/ML INJ. SYRINGE IVP PRN (17:06)
[2022-03-20 20:00] VITALS: BP_SYST 149
[2022-03-20] MEDS: cefTRIAXone 1 GM IVPB PREMIX 50 ML IV SCH (21:20)
[2022-03-21 00:33] VITALS: BP_SYST 107
[2022-03-21] MEDS: hydrALAZINE HCL 25 MG TABLET PO SCH ×5 (00:41→23:25)
[2022-03-21] MEDS: MORPHINE 2 MG/ML INJ. SYRINGE IVP PRN (00:48)
[2022-03-21] MEDS: NACL 0.9% 1,000 ML IV SCH (04:31)
[2022-03-21] MEDS: INSULIN NPH/REGULAR 70-30, 100 UNITS/ML, 3 ML VIAL SQ SCH (06:08)
[2022-03-21] MEDS: INSULIN LISPRO SLIDING SCALE 100 UNITS/ML, 3 ML VIAL (humaLOG) SUBCUT PRN ×4 (06:11→20:18)
[2022-03-21 06:26] LABS: BASOPHILS % (AUTO) 0.2 % (0.0-2.0); EOSINOPHILS % (AUTO) 0.1 % (0.0-4.0); HEMATOCRIT 31.1 % (36-48); HEMOGLOBIN 10.2 g/dL (12.0-16.0); LYMPHOCYTES % (AUTO) 12.6 % (20.5-51.5); MEAN CORPUSCULAR HEMOGLOBIN 30 pg (27-31); MEAN CORPUSCULAR HGB CONC 33 % (32-36); MEAN CORPUSCULAR VOLUME 93 fL (79.0-98.0); MONOCYTES # (AUTO) 2.5 K/uL (0.0-1.0); MONOCYTES % (AUTO) 15.6 % (1.7-9.3); NEUTROPHILS # (AUTO) 11.3 K/uL (1.8-7.7); NEUTROPHILS % (AUTO) 71.5 % (40.0-70.0); PLATELET COUNT (AUTO) 331 K/uL (130-430); RED BLOOD CELL COUNT(AUTO) 3.35 MIL/uL (4.2-6.2); WHITE BLOOD COUNT (AUTO) 15.8 K/uL (4.8-10.8)
[2022-03-21] MEDS: levETIRAcetam 500 MG TABLET PO SCH ×2 (08:25→20:08)
[2022-03-21] MEDS: ATORVASTATIN 20 MG TABLET PO SCH (08:26)
[2022-03-21] MEDS: METOPROLOL TARTRATE 50 MG TABLET PO SCH ×2 (08:26→20:09)
[2022-03-21] MEDS: MAGNESIUM OXIDE 400 MG TABLET PO SCH (08:27)
[2022-03-21 08:28] VITALS: BP_SYST 153
[2022-03-21 10:31] LABS: ANION GAP 11 (5-15); CALCIUM 8.2 mg/dL (8.4-11.0); CHLORIDE 116 mmol/L (98-107); GLUCOSE 253 mg/dL (70-99)
[2022-03-21 10:32] LABS: ALANINE AMINOTRANSFERASE 34 U/L (12-78); ALBUMIN 1.7 g/dL (3.4-4.8); ASPARTATE AMINOTRANSFERASE 49 U/L (10-37); CREATININE 1.72 mg/dL (0.55-1.30); PHOSPHORUS 2.5 mg/dL (2.7-4.5); TOTAL BILIRUBIN 0.6 mg/dL (0.0-1.0); UREA NITROGEN, BLOOD 50 mg/dL (8-21)
[2022-03-21 10:33] LABS: C-REACTIVE PROTEIN QUANT 17.7 mg/dL (0-0.5)
[2022-03-21] MEDS: MORPHINE 4 MG INJ. 4 MG/ML VIAL IVP PRN (10:40)
[2022-03-21 11:45] VITALS: BP_SYST 164
[2022-03-21 12:08] LABS: ERYTHROCYTE SEDIMENTATION RATE 67 MM/HR (0-20)
[2022-03-21] MEDS ORDERED: PIPERACILLIN/TAZO 3.375/DEX-IS 50 ML IV SCH (13:45)
[2022-03-21] MEDS ORDERED: CIPROFLOXACIN HCL 500 MG TABLET PO ONE (14:30)
[2022-03-21] MEDS: PIPERACILLIN/TAZO 2.25G/DEX-IS 50 ML IV SCH ×2 (15:09→20:08)
[2022-03-21 16:39] VITALS: BP_SYST 144
[2022-03-21 17:25] VITALS: BP_SYST 156
[2022-03-21] MEDS: INSULIN NPH/REGULAR 70-30, 100 UNITS/ML, 3 ML VIAL SUBCUT SCH (17:45)
[2022-03-21 20:00] VITALS: BP_SYST 165
[2022-03-21] MEDS: CIPROFLOXACIN HCL 500 MG TABLET PO SCH (21:24)
[2022-03-22] MEDS: LABETALOL 100 MG/ 20ML VIAL IVP PRN (01:13)
[2022-03-22 01:37] VITALS: BP_SYST 130
[2022-03-22] MEDS: PIPERACILLIN/TAZO 2.25G/DEX-IS 50 ML IV SCH ×4 (03:15→20:20)
[2022-03-22] MEDS: INSULIN NPH/REGULAR 70-30, 100 UNITS/ML, 3 ML VIAL SQ SCH (06:12)
[2022-03-22] MEDS: hydrALAZINE HCL 25 MG TABLET PO SCH ×4 (06:18→23:10)
[2022-03-22 07:36] LABS: ANION GAP 12 (5-15); CALCIUM 8.2 mg/dL (8.4-11.0); CHLORIDE 113 mmol/L (98-107); CREATININE 1.44 mg/dL (0.55-1.30); GLUCOSE 187 mg/dL (70-99); PHOSPHORUS 2.6 mg/dL (2.7-4.5); UREA NITROGEN, BLOOD 44 mg/dL (8-21)
[2022-03-22 08:00] VITALS: BP_SYST 160
[2022-03-22] MEDS: levETIRAcetam 500 MG TABLET PO SCH ×2 (08:50→20:09)
[2022-03-22] MEDS: METOPROLOL TARTRATE 50 MG TABLET PO SCH ×2 (08:51→20:10)
[2022-03-22] MEDS: ATORVASTATIN 20 MG TABLET PO SCH (08:53)
[2022-03-22] MEDS: MAGNESIUM OXIDE 400 MG TABLET PO SCH (08:56)
[2022-03-22] MEDS: CIPROFLOXACIN HCL 500 MG TABLET PO SCH ×2 (09:01→23:08)
[2022-03-22 11:23] VITALS: BP_SYST 137
[2022-03-22] MEDS: INSULIN LISPRO SLIDING SCALE 100 UNITS/ML, 3 ML VIAL (humaLOG) SUBCUT PRN ×3 (11:39→20:15)
[2022-03-22] MEDS ORDERED: ACETAMINOPHEN 500 MG TABLET PO PRN (12:45)
[2022-03-22 17:23] VITALS: BP_SYST 140
[2022-03-22] MEDS: INSULIN NPH/REGULAR 70-30, 100 UNITS/ML, 3 ML VIAL SUBCUT SCH (17:48)
[2022-03-22] MEDS ORDERED: D5W 500 ML IV ONE (18:15)
[2022-03-22 20:00] VITALS: BP_SYST 126
[2022-03-22] MEDS: 0.45% NACL 500 ML IV SCH (20:11)
[2022-03-23] VITALS: BP_SYST 138
[2022-03-23] MEDS: PIPERACILLIN/TAZO 2.25G/DEX-IS 50 ML IV SCH ×3 (02:35→15:51)
[2022-03-23] MEDS: 0.45% NACL 500 ML IV SCH ×2 (04:15→15:51)
[2022-03-23] MEDS: hydrALAZINE HCL 25 MG TABLET PO SCH ×2 (06:12→12:15)
[2022-03-23] MEDS: INSULIN NPH/REGULAR 70-30, 100 UNITS/ML, 3 ML VIAL SQ SCH (06:15)
[2022-03-23] MEDS: INSULIN LISPRO SLIDING SCALE 100 UNITS/ML, 3 ML VIAL (humaLOG) SUBCUT PRN ×2 (06:22→12:11)
[2022-03-23] MEDS: levETIRAcetam 500 MG TABLET PO SCH (08:41)
[2022-03-23] MEDS: METOPROLOL TARTRATE 50 MG TABLET PO SCH (08:41)
[2022-03-23] MEDS: CIPROFLOXACIN HCL 500 MG TABLET PO SCH (08:42)
[2022-03-23] MEDS: ATORVASTATIN 20 MG TABLET PO SCH (08:42)
[2022-03-23] MEDS: MAGNESIUM OXIDE 400 MG TABLET PO SCH (08:42)
[2022-03-23 11:30] VITALS: BP_SYST 132
[2022-03-23] MEDS ORDERED: RIVAROXABAN 10 MG TABLET PO ONE (12:15)
[2022-03-23 15:44] VITALS: BP_SYST 119
[2022-03-23 16:45] VITALS: BP_SYST 113
[2022-03-24] MEDS ORDERED: INSULIN NPH/REGULAR 70-30, 100 UNITS/ML, 3 ML VIAL SQ SCH (07:00)
[2022-03-24] MEDS ORDERED: RIVAROXABAN 10 MG TABLET PO SCH (09:00)
== END 2022-03-23 17:15 | DRG 853 ==
LOC: SED 22:11 → SMU 03-17 03:06 → STU 03-18 20:25
PROVIDERS: ADMIT Internal Medicine; ATTEND Internal Medicine
PROC: 05HY33Z Insertion of Infusion Device into Upper Vein, Percutaneous Approach (ICD-10-PCS; 2022-03-17)
PROC: B54NZZA Ultrasonography of Left Upper Extremity Veins, Guidance (ICD-10-PCS; 2022-03-17)
PROC: 30233N1 Transfusion of Nonautologous Red Blood Cells into Peripheral Vein, Percutaneous Approach (ICD-10-PCS; 2022-03-19)
PROC: 0QS604Z Reposition Right Upper Femur with Internal Fixation Device, Open Approach (ICD-10-PCS; principal; 2022-03-19 11:11)
PROC: 05HY33Z Insertion of Infusion Device into Upper Vein, Percutaneous Approach (ICD-10-PCS; 2022-03-20)
PROC: B54MZZA Ultrasonography of Right Upper Extremity Veins, Guidance (ICD-10-PCS; 2022-03-20)
DX: A41.9 Sepsis, unspecified organism (principal); S72.21XA Displaced subtrochanteric fracture of right femur, initial encounter for closed fracture; E87.0 Hyperosmolality and hypernatremia; N39.0 Urinary tract infection, site not specified; N17.9 Acute kidney failure, unspecified; G40.909 Epilepsy, unspecified, not intractable, without status epilepticus; W18.39XA Other fall on same level, initial encounter; E11.65 Type 2 diabetes mellitus with hyperglycemia; F03.90 Unspecified dementia, unspecified severity, without behavioral disturbance, psychotic disturbance, mood disturbance, and anxiety; E87.5 Hyperkalemia; E11.42 Type 2 diabetes mellitus with diabetic polyneuropathy; Z20.822 Contact with and (suspected) exposure to COVID-19; I12.9 Hypertensive chronic kidney disease with stage 1 through stage 4 chronic kidney disease, or unspecified chronic kidney disease; E11.22 Type 2 diabetes mellitus with diabetic chronic kidney disease; N18.9 Chronic kidney disease, unspecified; B96.5 Pseudomonas (aeruginosa) (mallei) (pseudomallei) as the cause of diseases classified elsewhere; B96.89 Other specified bacterial agents as the cause of diseases classified elsewhere; D64.9 Anemia, unspecified; Z88.8 Allergy status to other drugs, medicaments and biological substances; Z79.899 Other long term (current) drug therapy; Z79.4 Long term (current) use of insulin; Y93.89 Activity, other specified; Y99.8 Other external cause status; Y92.009 Unspecified place in unspecified non-institutional (private) residence as the place of occurrence of the external cause
CPT/HCPCS: 36415; 71045; 72170-TC; 73502; 73552; 76000; 76770; 80048; 80053; 81000; 82570; 82962; 83036; 83605; 83735; 83880; 84100; 84132; 84295; 84439; 84443; 84484; 85025; 85610-TC; 85651-TC; 85730-TC; 86140; 86886; 86900; 86901; 86920; 87040; 87081; 87086; 93005; 93306; 96365; 96375; 97110-GP; 97112-GP; 97530-GP; 99285; C1713; G0378; J0131; J0171; J0690; J0696; J1170; J1815; J2270; J2405; J2543; J2704; J3490; J7030; P9021